=== PATIENT | female | born 2005 | race Caucasian/White ===

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

== ENCOUNTER 2023-05-22 10:33 | Outpatient (OUT) | payer OTHER, SELFPAY ==
--- NOTE | 2023-05-22 10:42 | US_ITS ---
[address] [address] Patient Name: OTILIA SCHNEIDER MRN: [id number] date: 2005 Sex: F Assigned Patient Location: US Current Patient Location: Accession/Order Number: [id number] Exam Date: 05/22/2023 10:42 Report Date: 05/22/2023 15:28 At the request of: RADHA RODRIGUEZ Procedure: US OB cervical length EXAMINATION: US OB anatomy, US OB cervical length HISTORY: ANATOMY COMPARISON: No relevant comparison available. TECHNIQUE: Transabdominal sonographic examination was performed for obstetrical and evaluation. FINDINGS: Number: 1 Heart Rate: 153.0 bpm H.B. /min Amniotic Fluid Volume: Subjectively normal Placental Location: ANTERIOR with lower margin unable to be distinguished on today's study; but no previa. Cervix Length: 4.5 cm; closed. ANATOMY: Normal Structures -cerebellum, choroid plexus, cisterna magna, lateral cerebral ventricles, orbits, midline falx, hard palate, four-chamber heart, RVOT, LVOT, stomach, kidneys, bladder, umbilical cord insertion into abdomen, three-vessel cord, cervical spine, thoracic spine, lumbar spine, sacral spine, right upper extremity, left upper extremity, right lower extremity, left lower extremity. SUBOPTIMALLY SEEN: None ABNORMALITIES: None BIOMETRY: BPD: 7.9 cm 31 weeks 4 days HC: 28.9 cm 31 weeks 6 days AC: 27.0 cm 31 weeks 1 days FL: 6.3 cm 32 weeks 3 days EFW:1808.4 grams; 60% FL/AC: 23.2 FL/BPD: 79.9 HC/AC: 1.1 GESTATIONAL AGE: Age by EDC: 31 weeks 0 days SARITA by EDC: 07/24/2023 Age by current US: 31 weeks 5 days SARITA by current US: 07/19/2023 US/US OB cervical length IMPRESSION: 1. Single live intrauterine with growth detailed above. 2. Slightly limited examination due to advanced gestational age. Electronically authenticated by: SCOT RYAN Date: 05/22/2023 15:28
--- NOTE | 2023-05-22 10:42 | US_ITS ---
[place] [id number] Patient Name: OTILIA SCHNEIDER MRN: [id number] date: 2005 Sex: F Assigned Patient Location: US Current Patient Location: US Accession/Order Number: [id number] Exam Date: 05/22/2023 10:42 Report Date: 05/22/2023 15:28 At the request of: RADHA RODRIGUEZ Procedure: US OB anatomy EXAMINATION: US OB anatomy, US OB cervical length HISTORY: ANATOMY COMPARISON: No relevant comparison available. TECHNIQUE: Transabdominal sonographic examination was performed for obstetrical and evaluation. FINDINGS: Number: 1 Heart Rate: 153.0 bpm H.B. /min Amniotic Fluid Volume: Subjectively normal Placental Location: ANTERIOR with lower margin unable to be distinguished on today's study; but no previa. Cervix Length: 4.5 cm; closed. ANATOMY: Normal Structures -cerebellum, choroid plexus, cisterna magna, lateral cerebral ventricles, orbits, midline falx, hard palate, four-chamber heart, RVOT, LVOT, stomach, kidneys, bladder, umbilical cord insertion into abdomen, three-vessel cord, cervical spine, thoracic spine, lumbar spine, sacral spine, right upper extremity, left upper extremity, right lower extremity, left lower extremity. SUBOPTIMALLY SEEN: None ABNORMALITIES: None BIOMETRY: BPD: 7.9 cm 31 weeks 4 days HC: 28.9 cm 31 weeks 6 days AC: 27.0 cm 31 weeks 1 days FL: 6.3 cm 32 weeks 3 days EFW:1808.4 grams; 60% FL/AC: 23.2 FL/BPD: 79.9 HC/AC: 1.1 GESTATIONAL AGE: Age by EDC: 31 weeks 0 days SARITA by EDC: 07/24/2023 Age by current US: 31 weeks 5 days SARITA by current US: 07/19/2023 US/US OB anatomy IMPRESSION: 1. Single live intrauterine with growth detailed above. 2. Slightly limited examination due to advanced gestational age. Electronically authenticated by: SCOT RYAN Date: 05/22/2023 15:28
== END 2023-05-22 10:34 | disposition home or self-care (01) ==
LOC: US 10:40
PROVIDERS: Visit Provider Obstetrics & Gynecology
DX: Z36.89 Encounter for other specified antenatal screening (principal)
CPT/HCPCS: 76805; 76817

== ENCOUNTER 2023-06-20 19:22 | Outpatient (REF) | payer OTHER, SELFPAY | END 2023-06-20 19:23 | disposition home or self-care (01) | LOC: LAB 19:22 | PROVIDERS: Visit Provider Physician Assistant | DX: Z34.93 Encounter for supervision of normal pregnancy, unspecified, third trimester (principal) | CPT/HCPCS: 87081 ==

== ENCOUNTER 2023-06-23 02:28 | Observation (INO) | payer OTHER, SELFPAY ==
[2023-06-23 02:41] VITALS: BP 134/80; PULSE 104
[2023-06-23 02:59] LABS: Bilirubin Urine NEGATIVE (NEGATIVE); Blood Urine NEGATIVE (NEGATIVE); Clarity Urine CLEAR (CLEAR); Color Urine LT. YELLOW (YELLOW); Glucose Urine UA NEGATIVE (NEGATIVE); Ketones Urine NEGATIVE (NEGATIVE); Leukocyte Esterase Urine NEGATIVE (NEGATIVE); Nitrite Urine NEGATIVE (NEGATIVE); Protein Urine NEGATIVE (NEG/TRACE); Specific Gravity Urine <=1.005 (1.005-1.025); Urobilinogen Urine 0.2 EU/dL (0.2-1.0)
[2023-06-23 03:01] LABS: Urine Microscopic Indicated NO
[2023-06-23 03:07] LABS: Amnisure NEGATIVE (NEGATIVE)
== END 2023-06-23 03:28 | disposition home or self-care (01) ==
PROVIDERS: Admitting Provider Obstetrics & Gynecology; Visit Provider Obstetrics & Gynecology
DX: Z03.71 Encounter for suspected problem with amniotic cavity and membrane ruled out (principal); Z3A.00 Weeks of gestation of pregnancy not specified
CPT/HCPCS: 59025; 81003; 84112; G0378; G0379

== ENCOUNTER 2023-07-19 04:53 | Inpatient (IN) | payer OTHER, SELFPAY ==
[2023-07-19] VITALS (80 sets, daily range): BP systolic 107–165; BP diastolic 51–93; PULSE 89–141; RESP 14–18; TEMP 36.6–37.3; O2SAT 96
--- OUTSIDE RECORDS SUMMARY | 2023-07-19 04:57 | XMS_ITS | CCD ---
Author Name Unknown Address [address] [place] [address] Organization [facility] Care Team Providers Care Insurance Counselor Name Role Phone Ketan Mojica Unavailable Unavailable Unavailable Ketan Mojica Unavailable MD VAUGHN CORTEZ Attending Unavailable MD PIA, PHD GARTH Attending Unavaila ble JENNIFER ., DR GARCIA Consulting Unavailable JENNIFER ., DR GARCIA Attending Unavailable [facility] Primary Care Unavailable JENNIFER ., DR GARCIA Admitting Unavailable AGUBOSIM, DADA Consulting Unavailable JENNIFER ., DR GARCIA Procedure Practitioner Unavail able REQUEST, NONE LISTED Primary Care Unavaila ble JENNIFER ., DR GARCIA Attending Unavailable JENNIFER ., DR GARCIA Admitting Unavailable JENNIFER ., DR GARCIA Consulting Unavailable JENNIFER ., DR GARCIA Attending Unavailable [facility] Primary Care Unavailable JENNIFER ., DR GARCIA Admitting Unavailable ANTHONY ., MARY ALICE Admitting Unavailable [facility] Primary Care Unavailable ANTHONY ., MARY ALICE Attending Unavailable JENNIFER ., DR GARCIA Attending Unavailable [facility] Primary Care Unavailable JENNIFER ., DR GARCIA Admitting Unavailable JENNIFER ., DR GARCIA Consulting Unavailable JENNIFER ., DR GARCIA Attending Unavailable JENNIFER ., DR GARCIA Admitting Unavailable REQUEST, NONE LISTED Primary Care Unavaila ble JENNIFER ., DR GARCIA Consulting Unavailable JENNIFER ., DR GARCIA Attending Unavailable REQUEST, DR NONE LISTED Primary Care Unavaila ble EJNNIFER ., DR GARCIA Admitting Unavailable ZIEBER, DR SCOT Decker Consulting Unavailable JENNIFER ., DR GARCIA Consulting Unavailable JENNIFER ., DR GARCIA Attending Unavailable REQUEST, DR NONE LISTED Primary Care Unavaila ble JENNIFER ., DR GARCIA Admitting Unavailable JENNIFER ., DR GARCIA Attending Unavailable REQUEST, DR NONE LISTED Primary Care Unavaila ble JENNIFER ., DR GARCIA Admitting Unavailable JENNIFER ., DR GARCIA Consulting Unavailable JENNIFER ., DR GARCIA Attending Unavailable REQUEST, DR NONE LISTED Primary Care Unavaila ble WEST, DR KAISER Childs Consulting Unavailable JENNIFER ., DR GARCIA Admitting Unavailable JENNIFER ., DR GARCIA Consulting Unavailable KETAN MOJICA Primary Care Physician Alvaro Holt Attending Unavailable LANI, Christel T Attending Unavailable VINNY, TREVIN Suggs Attending Unavailable LANI, Christel T Consulting Unavailable LANI, Christel T Attending Unavailable LANI, Christel T Referring Unavailable LANI, TREVIN Christel T Consulting Unavailable LONGSDORFBLAZE Consulting Unavailable LANI, Christel T Consulting Unavailable LANI, Christel T Consulting Unavailable LANI, Christel T Consulting Unavailable LANI, Christel T Consulting Unavailable LANI, Christel T Consulting Unavailable LANI, Christel T Consulting Unavailable LANI, Christel T Consulting Unavailable LANI, Christel T Consulting Unavailable LANI, Christel T Consulting Unavailable LANI, Christel T Consulting Unavailable LANI, Christel T Consulting Unavailable LANI, Christel T Consulting Unavailable LANI, Christel T Consulting Unavailable Seth Cruz Attending Unavailable Ketan Mojica Unavailable MARY ALICE CRUZ Attending Unavailable ANTHONY, MARY ALICE Attending Unavailable ANTHONY, MARY ALICE Attending Unavailable RADHA GILL Attending Unavailable Medications Current Medications Medication Drug Class(es) Dates Sig (Normalized) Sig (Original) citalopram 20 mg oral tablet (4 sources) Serotonin Reuptake Inhibitor Start: 11-26-2022 citalopram 20 mg Tab Refills(s) 0 Start Date: 11/26/22 Status: Ordered diphenhydrAMINE hydrochloride 25 mg oral capsule (3 sources) Histamine-1 Receptor Antagonist Start: 12-10-2022 take 1 capsule by mouth three times daily as needed Benadryl 25 mg Cap 1 -2 caps, Oral, TID, PRN for itching, # 30 cap(s), Refills(s) 0, Pharmacy: [facility]/pharmacy #[id number], 163, cm, 12/10/22 11:22:00 EDT, Height/Length Dosing, 76.5, kg, 12/10/22 11:22:00 EDT, Weight Dosing Start Date: 12/10/22 Status: Ordered take 1 capsule by [facility] every twenty-four hours diphenhydrAMINE HCl 25 MG 1 capsule at bedtime as needed Orally Once a day Active famotidine 40 mg oral tablet (3 sources) Histamine-2 Receptor Antagonist Start: 12-10-2022 End: 12-17-2022 take 1 tablet by mouth once daily at bedtime Pepcid 40 mg Tab 40 mg = 1 tab(s), Oral, Once a day (at bedtime), X 7 day(s), # 7 tab(s), Refills(s) 0, Pharmacy: [facility]/pharmacy #[id number], 163, cm, 12/10/22 11:22:00 EDT, Height/Length Dosing, 76.5, kg, 12/10/22 11:22:00 EDT, Weight Dosing Start Date: 12/10/22 Stop Date: 12/17/22 Status: Ordered 12 hr loratadine 5 mg / pseudoephedrine sulfate 120 mg extended release oral tablet (1 source) alpha-Adrenergic Agonist Start: 11-26-2022 End: 12-03-2022 Claritin-D 5 mg-120 mg Tab-ER 1 tab(s), Oral, q12hr for 7 day(s), 14 tab(s), Refill(s) 0, [facility]/pharmacy #[id number], 162, cm, 11/26/22 17:18:00 EDT, Height/Length Dosing, 78, kg, 11/26/22 17:18:00 EDT, Weight Dosing Start Date: 11/26/22 Stop Date: 12/03/22 Status: Ordered Mucinex DM 30 mg-600 mg Tab-ER (1 source) Start: 11-26-2022 End: 12-10-2022 Mucinex DM 30 mg-600 mg Tab-ER 2 tab(s), Oral, q12hr for 14 day(s), 56 tab(s), Refill(s) 0, [facility]/pharmacy #[id number], 162, cm, 11/26/22 17:18:00 EDT, Height/Length Dosing, 78, kg, 11/26/22 17:18:00 EDT, Weight Dosing Start Date: 11/26/22 Stop Date: 12/10/22 Status: Ordered Completed/Discontinued Medications Medication Drug Class(es) Dates Sig (Normalized) Sig (Original) atenolol 25 mg oral tablet (4 sources) beta-Adrenergic Mikel Start: 04-18-2021 take 2 tablets by mouth at bedtime Atenolol 25 MG Oral Tablet 2 po hs. Quantity: 60 Refills: 5 Ordered: 16-Jun-2021 Vaughn Cortez MD Start : 18-Apr-2021 Active Start: 04-18-2021 Atenolol 25 MG Oral Tablet 1 po hsxweek, 2 po hs. Quantity: 30 Refills: 5 Ordered: 18-Apr-2021 Vaughn Cortez MD Start : 18-Apr-2021 Active Ketorolac Tromethamin (1 source) Start: 03-31-2021 Ketorolac Trom ethamin Mar, 2 mL magnesium oxide 400 mg oral tablet (2 sources) Start: 06-27-2021 Magnesium Oxid e 400 (241.3 Mg) MG Oral Tablet Quantity: 30 Refills: 0 Ordered: 27-Jun-2021 DO Start : 27-Jun-2021 Active promethazine hydrochloride 12.5 mg oral tablet (4 sources) Phenothiazine Start: 06-27-2021 Promethazine H Cl - 12.5 MG Oral Tablet Quantity: 30 Refills: 0 Ordered: 27-Jun-2021 DO Start : 27-Jun-2021 Active Start: 03-31-2021 take 1 tablet by pricilla th every twelve hours Promethazine HCl 25 MG 1 tablet as needed Orally every 12 hrs for 10 day(s) PRN Mar, Active SUMAtriptan 100 mg oral tablet (6 sources) Serotonin-1b and Serotonin-1d Receptor Agonist Start: 04-18-2021 take 1 tablet by mouth every two hours SUMAtriptan Succinate 100 MG Oral Tablet TAKE 1 TABLET AT ONSET OF MIGRAINE HEADACHE. MAY REPEAT IN 2 HOURS IF NEEDED. Quantity: 9 Refills: 3 Ordered: 16-Jun-2021 Vaughn Cortez MD Start : 18-Apr-2021 Active Start: 01-05-2021 take 1 tablet by pricilla th every twenty-four hours SUMAtriptan Succinate 100 MG 1 tablet as needed Orally Once a day PRN Dec, Active Problems Active Problems Problem Classification Problem Date Documented Date Episodic/Chronic Allergic reactions (2 sources) Contact dermatitis; Translations: [Unspecified contact dermatitis, unspecified cause] Onset: 12-10-2022 Episodic Anxiety disorders (2 sources) Anxiety disorder; Translations: [Anxiety state, unspecified] Chronic Attention-deficit, conduct, and disruptive behavior disorders (2 sources) Compulsive behavior; Translations: [Obsessive-compulsive disorders] Episodic Blindness and vision defects (2 sources) Unspecified visual loss; Translations: [Unspecified visual loss] Onset: 02-09-2023 Chronic Delirium, dementia, and amnestic and other cognitive disorders (3 sources) Postconcussion syndrome; Translations: [Postconcussional syndrome] Onset: 04-27-2021 Resolved: 04-27-2021 Chronic Headache; including migraine (13 sources) Tension-type headache; Translations: [Tension headache] Onset: 04-27-2021 Resolved: 04-27-2021 Chronic Headache; including migraine (2 sources) Daily headache; Translations: [Headache] Episodic Intracranial injury (6 sources) Concussion injury of brain; Translations: [Concussion, unspecified] Episodic Mood disorders (2 sources) Depressive disorder; Translations: [Depressive disorder, not elsewhere classified] Chronic Nonspecific chest pain (1 source) Chest pain; Translations: [Chest pain, unspecified] Onset: 12-11-2022 Episodic Other nutritional; endocrine; and metabolic disorders (1 source) Overweight in adulthood with body mass index of 25 or more but less than 30; Translations: [Body mass index (BMI) 29.0-29.9, adult] Onset: 11-26-2022 Episodic Other upper respiratory infections (1 source) Acute upper respiratory infection; Translations: [Acute upper respiratory infection, unspecified] Onset: 11-26-2022 Episodic Unclassified (1 source) PERSONAL HISTORY OF COVID-19; Translations: [PERSONAL HISTORY OF COVID-19] Onset: 02-06-2022 Unclassified (1 source) CONTACT W/AND (SUSP) EXPOS COVID-19; Translations: [CONTACT W/AND (SUSP) EXPOS COVID-19] Onset: 02-06-2022 Unclassified (3 sources) Sprain of right knee Onset: 11-27-2016 12-07-2016 Past or Other Problems Problem Classification Problem Date Documented Da te Episodic/Chronic Abdominal pain (1 source) Pelvic and perineal pain; Translations: [PELVIC AND PERINEAL PAIN] Onset: 01-04-2022 Episodic Immunizations and screening for infectious disease (4 sources) Encounter for screening for infections with a predominantly sexual mode of transmission; Translations: [ENC SCREEN INFECTIONS SEXL TRANSMS] Onset: 11-13-2021 Episodic OB-related trauma to perineum and vulva (1 source) Second degree perineal laceration during delivery; Translations: [SECOND DEG PERINEAL LAC DUR DELIV] Onset: 02-06-2022 Episodic Other aftercare (1 source) Other rat exterminator (current) drug therapy; Translations: [OTH CARE HOME CURRENT DRUG THERAPY] Onset: 02-06-2022 Episodic Other complications of (3 sources) Maternal care for excessive growth, third trimester, not applicable or unspecified; Translations: [MAT CARE EXCSS FTL GRTH 3RD TRI UNS] Onset: 01-29-2022 Episodic Other complications of (4 sources) Other specified related conditions, third trimester; Translations: [OTH SPEC PREG RELATED COND 3RD TRI] Onset: 01-03-2022 Episodic Other female genital disorders (1 source) Other specified noninflammatory disorders of vagina; Translations: [OTH SPEC NONINFLAMMATORY D/O VAGINA] Onset: 11-15-2021 Episodic Other gastrointestinal disorders (1 source) Diarrhea, unspecified; Translations: [DIARRHEA UNSPECIFIED] Onset: 01-04-2022 Episodic Other and delivery including normal (7 sources) ; Translations: [ state, incidental] Onset: 09-21-2021 Episodic Other screening for suspected conditions (not mental disorders or infectious disease) (10 sources) Encounter for screening for Streptococcus B; Translations: [Encounter for screening for diabetes mellitus] Onset: 09-25-2021 Episodic Residual codes; unclassified (1 source) 39 weeks gestation of ; Translations: [39 WEEKS GESTATION OF ] Onset: 02-06-2022 Episodic Residual codes; unclassified (1 source) 35 weeks gestation of ; Translations: [35 WEEKS GESTATION OF ] Onset: 01-10-2022 Episodic Results Test Name Value Interpretation Reference Range Facility Auto Diffon 12-11-2022 Basophils/100 WBC (Bld) 0.1 % Normal 0.0-2.0 [facility] Comment on above: Order Comment: Order Added by Discern Expert. Performed By: #### 1 [id number], 2391375, 6877544, 5823320, 88909547, [id number] ####[address] [place] [address] Basophils/Leukocytes Auto (Bld) [Pure # fraction] 0.0 E9/L Normal 0.0-0.2 [facility] Comment on above: Order Comment: Order Added by Discern Expert. Performed By: #### 1 [id number], 0505841, 3994172, 7475154, 53651184, 56344459 ####[address] [address] Eosinophils/100 WBC (Bld) 1.8 % Normal 0.0-8.0 [facility] Comment on above: Order Comment: Order Added by Discern Expert. Performed By: #### 1 0314443, 7324197, 9219240, 8798611, 23221894, 06704715 ####[address] [address] Eosinophils/Leukocytes Auto (Bld) [Pure # fraction] 0.2 E9/L Normal 0.0-0.5 [facility] Comment on above: Order Comment: Order Added by Discern Expert. Performed By: #### 1 2396515, 1591998, 6246903, 9029217, 93882180, 41254255 ####[address] [address] Lymphocytes/100 WBC (Bld) 15.1 % Normal 14.0-50.0 [facility] Comment on above: Order Comment: Order Added by Discern Expert. Performed By: #### 1 4283642, 5912533, 9804908, 4214135, 47627827, 94006233 ####[address] [address] Lymphocytes/Leukocytes Auto (Bld) [Pure # fraction] 1.5 E9/L Normal 1.0-4.0 [facility] Comment on above: Order Comment: Order Added by Marquez Expert. Performed By: #### 1 1190298, 8858865, 7724694, 2749064, 36557865, 30367410 ####[facility] [address] [place] [address] Monocytes/100 WBC (Bld) 9.2 % Normal 4.0-14.0 [facility] Comment on above: Order Comment: Order Added by Discern Expert. Performed By: #### 1 2739151, 4125533, 5344664, 2591020, 86471951, 08224555 ####[facility] [address] [place] [address] Monocytes/Leukocytes Auto (Bld) [Pure # fraction] 0.9 E9/L Normal 0.2-1.0 [facility] Comment on above: Order Comment: Order Added by Marquez Expert. Performed By: #### 1 5169367, 5855302, 0465184, 9780835, 31930655, 66770535 ####[facility] [address] [place] [address] Neutrophils/100 WBC (Bld) 73.8 % Normal 36.0-75.0 [facility] Comment on above: Order Comment: Order Added by Marquez Expert. Performed By: #### 1 9001336, 2124962, 9145290, 0883698, 40515438, 29937403 ####[address] [place] [address] Neutrophils/Leukocytes Auto (Bld) [Pure # fraction] 7.3 E9/L Normal 2.0-7.5 [facility] Comment on above: Order Comment: Order Added by Marquez Expert. Performed By: #### 1 3815128, 6028663, 1115093, 6176087, 89919094, 30480798 ####[facility] [address] [place] [address] BMPon 12-11-2022 Anion gap [Moles/Vol] 10 mmol/L Normal 6-16 [facility] [place] [facility] Comment on above: Performed By: #### 1 6104230, 7917227, 6479135, 1524024, 89259930, 48244669 ####[facility] [address] [place] [address] Calcium [Mass/Vol] 8.3 mg/dL Low 8.9-11.1 [facility] Comment on above: Performed By: #### 1 3541871, 0763270, 0401026, 3241155, 45327644, 18826975 ####[facility] [address] [place] [address] Chloride [Moles/Vol] 105 mmol/L Normal 101-111 [facility] Comment on above: Performed By: #### 1 1548812, 2617730, 3436276, 3508088, 88629302, 27704205 ####[facility] [address] [place] [address] CO2 [Moles/Vol] 23 mmol/L Normal 21-31 [facility] Comment on above: Performed By: #### 1 0130642, 9669521, 4600344, 6318603, 33982800, 38580480 ####[facility] [address] [place] [address] Creatinine [Mass/Vol] 0.7 mg/dL Normal 0.5-1.3 [facility] [place] [facility] Comment on above: Performed By: #### 1 3538797, 1457355, 0129060, 6843774, 65630804, 29638889 ####[facility] [address] [place] [address] Glucose [Mass/Vol] 92 mg/dL Normal 55-199 [facility] Comment on above: Result Comment: If t his glucose result represents a fasting glucose, interpretation should refer to the following reference range: 55-99 mg/dL Performed By: #### 1 3146593, 3764619, 1116205, 5049379, 62064447, 25073308 ####[facility] [address] [place] [address] Potassium [Moles/Vol] 4.4 mmol/L Normal 3.5-5.3 [facility] [place] [facility] Comment on above: Result Comment: 'Spe cimen hemolyzed. Result may be affected. Redraw is recommended.' Performed By: #### 1 6285654, 3214247, 5197647, 1405603, 25128885, 69621776 ####[facility] [address] [place] [address] Sodium [Moles/Vol] 134 mmol/L Low 135-145 [facility] Comment on above: Performed By: #### 1 9056689, 7933263, 8030167, 9684398, 86703248, 59467319 ####[facility] [address] [place] [address] Urea nitrogen [Mass/Vol] 10 mg/dL Normal 5-21 [facility] Comment on above: Performed By: #### 1 0557196, 7147071, 5894844, 7361077, 87971115, 16699140 ####[facility] [address] [place] [address] Urea nitrogen/Creatinine [Mass ratio] 14 No Units Normal 10-20 [facility] Comment on above: Performed By: #### 1 3305457, 4184001, 4689595, 5285027, 37729570, 40430788 ####[facility] [address] [place] [address] CBC w/ Auto Diffon 3 Erythrocyte distribution width (RBC) [Ratio] 17.0 % High 10.9-14.2 [facility] Comment on above: Performed By: #### 1 8264894, 3218219, 1461857, 5068805, 09635968, 89547708 ####[facility] [address] [place] [address] Hematocrit (Bld) [Volume fraction] 34.6 % Normal 34.0-46.0 [facility] Comment on above: Performed By: #### 1 2868597, 4714836, 7532980, 7209872, 38269573, 86233670 ####[facility] [address] [place] [address] Hemoglobin (Bld) [Mass/Vol] 11.2 g/dL Low 12.0-16.0 [facility] Comment on above: Performed By: #### 1 2976301, 8223892, 2176697, 5165200, 80054043, 48453268 ####[address] [place] [address] MCH (RBC) [Entitic mass] 25.1 pg Low 27.0-34.0 [facility] Comment on above: Performed By: #### 1 0450567, 5930221, 4145797, 2705009, 71116884, 76507807 ####[address] [address] MCHC (RBC) [Mass/Vol] 32.3 g/dL Normal 31.4-36.0 [facility] [place] [facility] Comment on above: Performed By: #### 1 4841432, 6379265, 7493108, 2422343, 37529370, 53624300 ####[address] [address] MCV (RBC) [Entitic vol] 77.7 fL Low 80.0-100.0 [facility] Comment on above: Performed By: #### 1 4821059, 4973172, 6621092, 6368117, 53416482, 59561815 ####[address] [address] Platelet mean volume (Bld) [Entitic vol] 8.0 fL Normal 6.4-10.8 [facility] Comment on above: Performed By: #### 1 9406074, 6908884, 7541384, 2702606, 75741253, 91385745 ####[address] [address] Platelets (Bld) [#/Vol] 318.0 E9/L Normal 150.0-500.0 [facility] Comment on above: Performed By: #### 1 2631340, 1535082, 3778734, 9882557, 08271917, 08037360 ####[facility] [address] [place] [address] RBC (Bld) [#/Vol] 4.4 E12/L Normal 4.3-5.9 [facility] Comment on above: Performed By: #### 1 8680454, 2338160, 7565032, 6523047, 87514957, 16895235 ####[facility] [address] [place] [address] WBC corrected for nucl RBC Auto (Bld) [#/Vol] 10.0 E9/L Normal 4.0-11.0 [facility] Comment on above: Performed By: #### 1 3234787, 3661870, 0607165, 2554717, 23836255, 00619828 ####[facility] [address] [place] [address] CHEMISTRYOrdered By: SYSTEM SYSTEM on 12-11-2022 Anion gap [Moles/Vol] 10 mmol/L Normal 6 - 16 mEq/L F [facility] Calcium [Mass/Vol] 8.3 mg/dL Low 8.9 - 11. 1 mg/dL [facility] Chloride [Moles/Vol] 105 mmol/L Normal 101 - 1 11 mmol/L [facility] CO2 [Moles/Vol] 23 mmol/L Normal 21 - 31 mmol/L [facility] Creatinine [Mass/Vol] 0.7 mg/dL Normal 0.5 - 1.3 mg/dL [facility] GFR/1.73 sq M.predicted among non-blacks MDRD (S/P/Bld) [Vol rate/Area] 128 mL/min/1.73 m2 Normal >=59mL/min/1 .73 m2 [facility] Chem S Glucose [Mass/Vol] 92 mg/dL Normal 55 - 199 mg/dL [facility] Potassium [Moles/Vol] 4.4 mmol/L Normal 3.5 - 5.3 mmol/L [facility] Comment on above: Result Comment: 'Spe cimen hemolyzed. Result may be affected. Redraw is recommended.' Sodium [Moles/Vol] 134 mmol/L Low 135 - 145 mmol/L [facility] Troponin I.cardiac [Mass/Vol] pg/mL Low 10.10 - 27.10 pg/mL [facility] Urea nitrogen [Mass/Vol] 10 mg/dL Normal 5 - 21 mg/dL [facility] Remisol Urea nitrogen/Creatinine [Mass ratio] 14 mg/mg Normal 10 - 20 [facility] COAGULATIONOrdered By: Allyn Ryan on 12-11-2022 aPTT Coag (PPP) [Time] 30.7 s Normal 25.1 - 36.5 second(s) [facility] Auto Coag INR Coag (PPP) [Relative time] 1.1 {INR} Invalid Interpretation Code [facility] Auto Coag PT Coag (PPP) [Time] 12.5 s Normal 9.4 - 1 2.5 second(s) [facility] Auto Coag Consent for Treatmenton 11-14 Consent for Treatment [id number] .00CD:127 Normal [facility] Discharge Instructionson Discharge Instructions [id number] .[id number]:127 Normal [facility] ED Clinical Summaryon 2022 ED Clinical Summary [id number] ED Clinical Summary Person Information Name: CAREY HODGES/[facility] Age: 17 Years : 2005 Sex: Female Language: Swiss PCP: KETAN MOJICA DO Marital Status: Single Visit Id: Visit Reason: Shortness of breath; Chest pressure - Adult; ALLERGIC REACTION Speciality: Acuity: 3 Enc Type: Emergency Med Service: Emergency Arrival: 12/11/2022 04:10:27 Discharge: 12/11/2022 06:51:09 LOS: 000 02:41 Checkin: 12/11/2022 04:10:27 Checkout: 12/11/2022 06:51:09 Dispo Type: Home (Routine DC) EVENTS: Event Name Event Status Request Date/Time Start Date/Time Complete Date/Time Arrive Complete 12/11/2022 04:10:27 12/11/2022 04:10:27 12/11/2022 04:10:27 Document Home Meds Request 12/11/2022 04:10:27 Triage Complete 12/11/2022 04:10:27 12/11/2022 04:13:50 12/11/2022 04:13:50 EKG Complete 12/11/2022 04:14:51 12/11/2022 04:18:30 Bed Assign Complete 12/11/2022 04:15:03 12/11/2022 04:15:03 12/11/2022 04:15:03 Dr Exam Complete 12/11/2022 04:15:03 12/11/2022 04:20:25 12/11/2022 04:20:25 RN Exam Request 12/11/2022 04:15:03 Pending Labs Request 12/11/2022 04:20:20 Lab Complete 12/11/2022 04:20:20 12/11/2022 04:57:05 Patient Care Request 12/11/2022 04:20:20 RT Request 12/11/2022 04:20:20 X-Ray Complete 12/11/2022 04:20:20 12/11/2022 04:40:18 12/11/2022 04:49:59 Registration Complete 12/11/2022 04:20:25 12/11/2022 04:32:25 12/11/2022 04:32:25 Reg Complete Request 12/11/2022 04:32:25 Reg Bed Request Complete 12/11/2022 04:32:25 12/11/2022 04:32:25 12/11/2022 04:32:25 Pending Labs Complete 12/11/2022 04:38:05 12/11/2022 04:38:05 12/11/2022 04:57:06 Lab Complete 12/11/2022 04:38:05 12/11/2022 04:38:05 12/11/2022 04:57:06 Pending Labs Complete 12/11/2022 04:42:52 12/11/2022 04:42:52 12/11/2022 04:42:59 Lab Complete 12/11/2022 04:42:52 12/11/2022 04:42:52 12/11/2022 04:42:59 Wet Read Request 12/11/2022 04:49:59 Pending Labs Complete 12/11/2022 06:16:04 12/11/2022 06:16:04 12/11/2022 06:16:04 Discharge Complete 12/11/2022 06:35:33 12/11/2022 06:51:15 12/11/2022 06:51:15 Transfer Complete 12/11/2022 06:51:15 12/11/2022 06:51:15 12/11/2022 06:51:15 ADDRESS: [address] [place] [address] IFRAH VANG PR [phone] PHYS DOC NOTES: MEDICAL INFORMATION: Prescriptions Given: Medications to Continue with No Changes Other Medications citalopram (citalopram 20 mg Tab) diphenhydrAMINE (Benadryl 25 mg Cap) 1 -2 caps By Mouth 3 times a day as needed for itching. Refills: 0. famotidine (Pepcid 40 mg Tab) 1 Tablets By Mouth once a day (at bedtime) for 7 Days. Refills: 0. PATIENT EDUCATION INFORMATION: Instructions: Contact Dermatitis; Nonspecific Chest Pain, Adult Follow up: With: Address: When: KETAN MOJICA [address] [place], [place] [id number] Business (1) In 3 days DIAGNOSIS: Acute contact dermatitis; Chest pain Normal [facility] ED Note-Nursingon 12-11-2022 ED Note-Nursing pt arrived to ed fro m home via private car with her and child c/o rash and swelling to her face and rash to her BL arms, BL thighs, and chest. pt has redness with swelling on her face and just redness on the other parts of the body that was affected. pt endorses itching. pt was seen in this ED yesterday for the same issue but was unable to get her prescriptions since the pharmacy was closed. pt is 8 weeks and is . VSS. pt slightly SOB but denies any other complaints. pt lung sounds clear throughout. Normal [facility] ED Note-Nursing pt given d/c instructions and educated on importance of follow up. pt verbalized understanding of instructions and readiness for d/c. pt walked self ambulatory to waiting room in stable condition Normal [facility] ED Note-Physicianon 12-12-19 ED Note-Physician Basic Information Time Seen: Alvaro Holt DO 12/11/2022 04:20 Chief Complaint Allergic reaction to poison oak. Seen earlier in ER for same complain. Now having chest pressure and SOB for past couple of hours. Pt is 8 weeks and . History of Present Illness HPI: Patient is a 17-year-old female who is 8 weeks presents the ED for chest pressure and shortness of breath. Patient states that earlier today she was in the ED and was diagnosed with a allergic reaction to poison oak. She states that she has continued to have itching and rash for which she has been using calamine lotion and a oatmeal scrub. She states that 2 hours ago she started feeling like there was a slight tightness in her chest as well has some shortness of breath. She denies any difficulty swallowing or any tongue swelling or tightness in her throat. She denies any nausea vomiting or diarrhea. ROS: Pertinent review of systems conducted and is negative except as noted above. Physical exam: General: nontoxic appearing and in no distress HEENT: Mucous membranes moist. Slight erythema and puffiness of bilateral cheeks and lower eyelids Neuro: awake and alert Neck: supple, trachea midline Card: Heart regular rate and rhythm no murmur Resp: Lungs clear to auscultation no wheeze or rhonchi Abd: Soft and nondistended. No tenderness to palpation with no rebound or guarding. Ext: No gross deformity or edema Physical Exam Vitals & Measurements T: 36.8 ?C(Oral) HR: 96(Peripheral) RR: 16 BP: 125/77 SpO2: 98% HT: 162 cm WT: 76 kg BMI: 28.96 Medical Decision Making MEDICAL DECISION MAKING Number and Complexity of Problems Differential Diagnosis: [] [facility] Data External documents reviewed: N/A My EKG interpretation: Noted in chart if applicable My CT interpretation: N/A My X-ray interpretation: Noted in chart if applicable My Ultrasound interpretation: N/A Decision rules/scores evaluated: N/A Discussed with: N/A Treatment and Disposition ED Course: Patient is well-appearing in no distress. Lungs are clear to auscultation. She is saturating well on room air. She has no swelling in her mouth throat or difficulty breathing or swallowing. We will obtain a cardiac work-up here in the ED. Work-up shows a mild anemia of 11.2. Chest x-ray shows no acute process. Troponin is within normal limits. The pain has been going on for several hours so I do not believe there is utility in repeating a 3-hour troponin at this time. I discussed the results with the patient at bedside. I feel she is stable for discharge with close follow-up with her primary care physician. She will call her SAWSMITH first thing in the morning to ask what further medication she can use for the contact dermatitis and itching as she is both currently and breast-feeding. Shared decision making: As above Code status: N/A Assessment/Plan Acute contact dermatitis (L25.9: Unspecified contact dermatitis, unspecified cause) Chest pain (R07.9: Chest pain, unspecified) Orders: Automated Diff Basic Metabolic Panel CBC w/ Auto Diff ECG 12 Lead Adult ED Cardiac Monitoring eGFR Extra SST Tube Oxygen Saturation Oxygen Therapy PT & PTT Saline Lock Insert Troponin 0 Hr. Troponin 3 Hr. Troponin 6 Hr. Troponin 9 Hr. XR Chest Single View Disposition Plan Discharge Prescription List Prescriptions Benadryl 25 mg Cap, 1 -2 caps, Oral, TID, PRN Pepcid 40 mg Tab, 40 mg= 1 tab(s), Oral, Once a day (at bedtime) Follow-up With When Contact Information KETAN MOJICA In 3 days [address] [place] [address] [facility] (1) Additional Instructions: Patient Education Contact Dermatitis Nonspecific Chest Pain, Adult Problem List/Past Medical History Ongoing Sprain of right knee Historical No qualifying data Procedure/Surgical History RIGHT KNEE ARTHROSCOPY ACL RECONSTRUCTION HAMSTRING AUTOGRAFT MENISCAL REPAIR PARTIAL MEDIAL MENISCECTOMY (07/25/2018), None. Medications Inpatient No active inpatient medications Home Benadryl 25 mg Cap, 1 -2 caps, Oral, TID, PRN citalopram 20 mg Tab Pepcid 40 mg Tab, 40 mg= 1 tab(s), Oral, Once a day (at bedtime) Allergies No Known Allergies Social History Alcohol - Denies Alcohol Use, 08/04/2013 Current, 08/12/2020 Alcohol use interferes with work or home: No., 06/18/2017 Other Substance Abuse - Denies Substance Abuse, 08/04/2013 Household substance abuse concerns: No., 08/12/2020 Tobacco - Denies Tobacco Use, 08/04/2013 Never (less than 100 in lifetime) Tobacco Use:. Never Smokeless Tobacco Use:. Household tobacco concerns: No., 11/26/2022 Household tobacco concerns: Yes., 09/28/2010 Family History Family history is negative Lab Results WBC: 10 E9/L (12/11/22 04:33:00) RBC: 4.4 E12/L (12/11/22 04:33:00) HGB: 11.2 gm/dL Low (12/11/22 04:33:00) Hct: 34.6 % (12/11/22 04:33:00) MCV: 77.7 fL Low (12/11/22 04:33:00) MCH: 25.1 pg Low (05/ (more content not included)... Normal [facility] Comment on above: Result Comment: Elec tronically Signed By: Alvaro Holt DO\.br\Date and Time Signed: 12/11/22 06:37 EDT ED Patient Education Noteon 12-11-2022 ED Patient Education Note Dermatology Contact Dermatitis Dermatitis is redness, soreness, and swelling (inflammation) of the skin. Contact dermatitis is a reaction to certain substances that touch the skin. Many different substances can cause contact dermatitis. There are two types of contact dermatitis: ? Irritant contact dermatitis. This type is caused by something that irritates your skin, such as having dry hands from washing them too often with soap. This type does not require previous exposure to the substance for a reaction to occur. This is the most common type. ? Allergic contact dermatitis. This type is caused by a substance that you are allergic to, such as poison bre. This type occurs when you have been exposed to the substance (allergen) and develop a sensitivity to it. Dermatitis may develop soon after your first exposure to the allergen, or it may not develop until the next time you are exposed and every time thereafter. What are the causes? Irritant contact dermatitis is most commonly caused by exposure to: ? Makeup. ? Soaps. ? Detergents. ? Bleaches. ? Acids. ? Metal salts, such as nickel. Allergic contact dermatitis is most commonly caused by exposure to: ? Poisonous plants. ? Chemicals. ? Jewelry. ? Latex. ? Medicines. ? Preservatives in products, such as clothing. What increases the risk? You are more likely to develop this condition if you have: ? A job that exposes you to irritants or allergens. ? Certain medical conditions, such as asthma or eczema. What are the signs or symptoms? Symptoms of this condition may occur on your body anywhere the irritant has touched you or is touched by you. ? Symptoms include: ? Dryness or flaking. ? Redness. ? Cracks. ? Itching. ? Pain or a burning feeling. ? Blisters. ? Drainage of small amounts of blood or clear fluid from skin cracks. With allergic contact dermatitis, there may also be swelling in areas such as the eyelids, mouth, or genitals. How is this diagnosed? This condition is diagnosed with a medical history and physical exam. ? A patch skin test may be performed to help determine the cause. ? If the condition is related to your job, you may need to see an occupational health manager. How is this treated? This condition is treated by checking for the cause of the reaction and protecting your skin from further contact. Treatment may also include: ? Steroid creams or ointments. Oral steroid medicines may be needed in more severe cases. ? Antibiotic medicines or antibacterial ointments, if a skin infection is present. ? Antihistamine lotion or an antihistamine taken by mouth to ease itching. ? A bandage (dressing). Follow these instructions at home: Skin care ? Moisturize your skin as needed. ? Apply cool compresses to the affected areas. ? Try applying baking soda paste to your skin. Stir water into baking soda until it reaches a paste-like consistency. ? Do not scratch your skin, and avoid friction to the affected area. ? Avoid the use of soaps, perfumes, and dyes. Medicines ? Take or apply xjpp-hdk-qxkkutj and prescription medicines only as told by your health care provider. ? If you were prescribed an antibiotic medicine, take or apply the antibiotic as told by your health care provider. Do not stop using the antibiotic even if your condition improves. Bathing ? Try taking a bath with: ? Epsom salts. Follow the instructions on the packaging. You can get these at your local pharmacy or grocery store. ? Baking soda. Pour a small amount into the bath as directed by your health care provider. ? Colloidal oatmeal. Follow the instructions on the packaging. You can get this at your local pharmacy or grocery store. ? Bathe less frequently, such as every other day. ? Bathe in lukewarm water. Avoid using hot water. Bandage care ? If you were given a bandage (dressing), change it as told by your health care provider. ? Wash your hands with soap and water before and after you change your dressing. If soap and water are not available, use hand automatic typewriter inspector. General instructions ? Avoid the substance that caused your reaction. If you do not know what caused it, keep a journal to try to track what caused it. Write down: ? What you eat. ? What cosmetic products you use. ? What you drink. ? What you wear in the affected area. This includes jewelry. ? Check the affected areas every day for signs of infection. Check for: ? More redness, swelling, or pain. ? More fluid or blood. ? Warmth. ? Pus or a bad smell. ? Keep all follow-up visits as told by your health care provider. This is important. Contact a health care provider if: ? Your condition does not improve with treatment. ? Your condition gets worse. ? You have signs of infection such as swelling, tenderness, redness, soreness, or warmth in the affected area. ? You have a fever. ? You have new symptoms. Get help right away if: (more content not included)... Normal [facility] ED Patient Summaryon 023 ED Patient Summary [place] [id number] Patient Discharge Instructions Person Information Name: CAREY HODGES Age: 17 Years Arrival Date: 12/11/2022 04:10:27 Discharge Diagnosis: Acute contact dermatitis; Chest pain Primary Care Physician: KETAN MOJICA DO Provider Information Primary Provider: Alvaro Holt DO Advanced Wax Pot Tender:None The exam and treatment you received in the Emergency Department were for an urgent problem and are not intended as complete care. It is important that you follow up with a doctor, nurse practitioner, or physician?s pier master assistant for ongoing care. If your symptoms become worse or you do not improve as expected and you are unable to reach your usual health care provider, you should return to the Emergency Department. We are available 24 hours a day. CAREY HODGES has been given the following list of patient education materials, prescriptions and follow-up instructions: Follow-up Instructions: With: Address: When: KETAN MOJICA [facility] [place] [id number] Business (1) In 3 days In the event that this physician does not participate in your insurance network, please consult with your insurance company to find a nearby participating provider. Patient Education Materials: Contact Dermatitis; Nonspecific Chest Pain, Adult A MESSAGE TO ALL PATIENTS REGARDING OPIOIDS PRESCRIPTION OPIOIDS: WHAT YOU NEED TO KNOW Prescription opioids can be used to help relieve upygwxod-px-lxmoai pain and are often prescribed following a surgery or injury, or for certain health conditions. These medications can be an important part of the treatment but also come with serious risks. It is important to work with your healthcare provider to make sure you are getting the safest, most effective care. WHAT ARE THE RISKS AND SIDE EFFECTS OF OPIOID USE? Prescription opioids carry serious risks of addiction and overdose, especially with prolonged use. An opioid overdose, often marked by slowed breathing, can cause sudden . The use of prescription opioids can have a number of side effects as well, even when taken as directed: ? Tolerance?meaning you might need to take more of the medication for the same pain relief ? Physical dependence?meaning you have symptoms of withdrawal when a medication is stopped ? Increased sensitivity to pain ? Constipation ? Nausea, vomiting, and dry mouth ? Sleepiness and dizziness ? Confusion ? Depression ? Low levels of testosterone that can result in lower sex drive, energy, and strength ? Itching and sweating RISKS ARE GREATER WITH: ? History of drug misuse, substance use disorder, or overdose ? Mental health conditions (such as depression or anxiety) ? Sleep apnea ? Older age (65 years and older) ? Avoid alcohol while taking prescription opioids. Also, unless specifically advised by your health care provider, medications to avoid include: ? Benzodiazepines (such as Xanax or Valium) ? Muscle relaxants (such as Soma or Flexeril) ? Hypnotics (such as Ambien or Lunesta) ? Other prescription opioids KNOW YOUR OPTIONS Talk to your health care provider about ways to manage your pain that don?t involve prescription opioids. Some of these options may actually work better and have fewer risks and side effects. Options may include: ? Pain relievers such as acetaminophen, ibuprofen, and naproxen ? Some medication that are also used for depression or seizures ? Physical therapy and exercise ? Cognitive behavioral therapy, a psychological, goal-directed approach, in which patients learn how to modify physical, behavioral, and emotional triggers of pain and stress. IF YOU ARE PRESCRIBED OPIOIDS FOR PAIN: ? Never take opioids in greater amounts or more often than prescribed. ? Follow up with your primary health care provider. o Work together to create a plan on how to manage your pain. o Talk about ways to help manage your pain that don?t involve prescription opioids. o Talk about any and all concerns and side effects. ? Help prevent misuse and abuse o Never sell or share prescription opioids. o Never use another person?s prescription opioids. ? Store prescription opioids in a secure place and out of reach of others (this may include visitors, children, friends, and family). ? Safely dispose of unused prescription opioids: Find your community drug take-back program or your pharmacy mail-back program, or flush them down the toilet, following guidance from the Food and Drug Administration (www.fda.gov/Drugs/Re sourcesForYou). ? Visit www.cdc.gov/drugoverd ose to learn about the risks of opioids abuse and overdose. ? If you believe you may be struggling with addiction, tell your health day care supervisor and ask for guidance or call [facility] National Helpline at 5-256- (more content not included)... Normal [facility] HEMATOLOGYOrdered By: SYSTEM SYSTEM on 12-11-2022 Basophils/100 WBC (Bld) 0.1 % Normal 0.0 - 2.0 % [facility] HemeAutoSS Basophils/Leukocytes Auto (Bld) [Pure # fraction] 0.0 E9/L Normal 0.0 - 0.2 E9/L [facility] HemeAutoSS Eosinophils/100 WBC (Bld) 1.8 % Normal 0.0 - 8.0 % [facility] HemeAutoSS Eosinophils/Leukocytes Auto (Bld) [Pure # fraction] 0.2 E9/L Normal 0.0 - 0.5 E9/L [facility] HemeAutoSS Lymphocytes/100 WBC (Bld) 15.1 % Normal 14.0 - 50.0 % [facility] HemeAutoSS Lymphocytes/Leukocytes Auto (Bld) [Pure # fraction] 1.5 E9/L Normal 1.0 - 4.0 E9/L [facility] HemeAutoSS Monocytes/100 WBC (Bld) 9.2 % Normal 4.0 - 14.0 % [facility] HemeAutoSS Monocytes/Leukocytes Auto (Bld) [Pure # fraction] 0.9 E9/L Normal 0.2 - 1.0 E9/L [facility] HemeAutoSS Neutrophils/100 WBC (Bld) 73.8 % Normal 36.0 - 75.0 % [facility] HemeAutoSS Neutrophils/Leukocytes Auto (Bld) [Pure # fraction] 7.3 E9/L Normal 2.0 - 7.5 E9/L [facility] HemeAutoSS HEMATOLOGYOrdered By: Pilar Ryan on 12-11-2022 Erythrocyte distribution width (RBC) [Ratio] 17.0 % High 10.9 - 14.2 % [facility] HemeAutoSS Hematocrit (Bld) [Volume fraction] 34.6 % Normal 34.0 - 46.0 % [facility] HemeAutoSS Hemoglobin (Bld) [Mass/Vol] 11.2 g/dL Low 12.0 - 16.0 gm/dL [facility] HemeAutoSS MCH (RBC) [Entitic mass] 25.1 pg Low 27.0 - 34.0 pg [facility] HemeAutoSS MCHC (RBC) [Mass/Vol] 32.3 g/dL Normal 31.4 - 36.0 gm/dL [facility] HemeAutoSS MCV (RBC) [Entitic vol] 77.7 fL Low 80.0 - 100.0 fL [facility] HemeAutoSS Platelet mean volume (Bld) [Entitic vol] 8.0 fL Normal 6.4 - 10.8 fL [facility] HemeAutoSS Platelets (Bld) [#/Vol] 318.0 E9/L Normal 150.0 - 500.0 E9/L [facility] HemeAutoSS RBC (Bld) [#/Vol] 4.4 E12/L Normal 4.3 - 5.9 E12/L [facility] WBC corrected for nucl RBC Auto (Bld) [#/Vol] 10.0 E9/L Normal 4.0 - 11.0 E9/L [facility] HemeAutoSS PT & PTTon 12-11-2022 aPTT Coag (PPP) [Time] 30.7 second(s) Normal 25.1-36.5 [facility] Comment on above: Result Comment: Para meter 15 days - 4 weeks 1 - 5 months 6 - 11 months 1 - 5 years 6 - 10 years 11 - 17 years PTT Mean: 35.4 (27.6-45.6) Mean: 33.5 (24.8-40.7) Mean: 32.4 (25.1-40.7) Mean: 31.6 (24.0-39.2) Mean: 31.6 (26.9-38.7) Mean: 31.0 (24.6-38.4) Pediatric Reference ranges were obtained from a study by gisell Hood al. prepared from 1437 samples obtained at 7 different centers using the same coagulation reagent and instrumentation as [facility]. Currently there are no coagulation studies available worldwide for children to 14 days, and no normal ranges. Heparin therapeutic range (represented by Anti-Factor Xa activity of 0.2 - 0.4 U/mL) corresponds to PTT of 56.6 - 109.0 sec. Performed By: #### 1 [id number], [id number], [id number] ####[facility] [address] [place] [address] INR Coag (PPP) [Relative time] 1.1 {INR} Invalid Interpretation Code [facility] Comment on above: Result Comment: INR results are specifically intended to assess patients stabilized on long-term Anticoagulation therapy suggested INR?s ?Less Intensive Anticoagulation? 2.0 ? 3.0 Conventional Range 3.0 ? 4.5 Performed By: #### 1 [id number] [id number], [id number], [id number] ####[facility] [address] [place] [address] PT Coag (PPP) [Time] 12.5 second(s) Normal 9.4-12.5 [facility] Comment on above: Result Comment: 15 d ays - 4 weeks 1 - 5 months 6 -11 months 1 ? 5 years 6 ? 10 years 11 -17 years Mean: 11.2 (9.5 ? 12.6) Mean: 11.0 (9.7 ? 12.8) Mean: 11.0 (9.8 ? 13.0) Mean: 11.3 (9.9 ? 13.4) Mean: 11.7 (10.0 ? 14.6) Mean: 11.8 (10.0 - 14.1) Pediatric Reference ranges were obtained from a study by Vidal Concepcion et al. prepared from 1437 samples obtained at 7 different centers using the same coagulation reagent and instrumentation as [facility]. Currently there are no coagulation studies available worldwide for children to 14 days, and no normal ranges. Performed By: #### 1 [id number], [id number], 8146535, [id number], [id number] ####[facility] [address] [place] [address] Troponin 0 Hr.on 12-11-2022 Troponin I.cardiac [Mass/Vol] ng/mL Low 10.10-27.10 [facility] Comment on above: Result Comment: The 95% CI (Confidence Interval) PPV (Positive Predictive Value) for myocardial infarction in females is 38 pg/mL, in males 51 pg/mL. The results should be used in conjunction with clinical conditions of myocardial infarction. (Access High Sensitivity Troponin I Instructions For Use, Brooke Shira, February 2018) Performed By: #### 1 [id number], [id number], [id number], [id number], [id number], [id number] ####[facility] [address] [place] [address] XR Chest Single Viewon 12-11 XR Chest Single View Exam Date/Time: 12/11/2022 04:49 EDT Reason for Exam: Chest pain Report IMPRESSION: NO ACUTE CARDIOPULMONARY DISEASE CLINICAL HISTORY: Chest pain COMPARISON: NONE. FINDINGS: Osseous structures are intact. Cardiopericardial silhouette normal. Pulmonary vasculature normal. Lungs clear. Ordering Provider: Alvaro Holt FINAL REPORT Dictated: 12/11/2022 9:25 am Deepak Martini MD Signed (Electronic Signature): 12/11/2022 9:25 am Signed by: Deepak Martini MD Transcribed by: SUHAIL Technologist: ROXANNE Technical Comments Radiation Dose: Ka,r in mGy = na DAP = na Normal [facility] eGFRon 12-11-2022 GFR/1.73 sq M.predicted among non-blacks MDRD (S/P/Bld) [Vol rate/Area] 128 mL/min/1.73 m2 Normal >=59 [facility] Comment on above: Order Comment: Order added by Discern Expert. Result Comment: Consumer Loan Specialist justino kidney disease could be indicated at eGFR's of less than 60 mL/min/1.73m2. Kidney failure is indicated at less than 15 mL/min/1.73m2. Performed By: #### 1 [id number], [id number], 0450009, 8858514, [id number], [id number] ####[place] [address] [place] [address] Consent for Treatmenton 11-13 Consent for Treatment [id number] .[id number]:127 Normal [facility] Discharge Instructionson Discharge Instructions [id number] .[id number]:127 Normal [facility] ED Clinical Summaryon 2022 ED Clinical Summary [place] [id number] ED Clinical Summary Person Information Name: CAREY HODGES [place] Age: 17 Years : 2005 Sex: Female Language: Swiss PCP: KETAN MOJICA DO Marital Status: Single Visit Id: Visit Reason: Skin problem; POISON OAK ALL OVER BODY Speciality: Acuity: 4 Enc Type: Emergency Med Service: Emergency Arrival: 12/10/2022 10:41:52 Discharge: 12/10/2022 13:20:56 LOS: 000 02:39 Checkin: 12/10/2022 10:41:52 Checkout: 12/10/2022 13:20:56 Dispo Type: Home (Routine DC) EVENTS: Event Name Event Status Request Date/Time Start Date/Time Complete Date/Time Arrive Complete 12/10/2022 10:41:52 12/10/2022 10:41:52 12/10/2022 10:41:52 Document Home Meds Request 12/10/2022 10:41:52 Triage Complete 12/10/2022 10:41:52 12/10/2022 11:22:04 12/10/2022 11:22:04 Bed Assign Complete 12/10/2022 11:47:17 12/10/2022 11:47:17 12/10/2022 11:47:17 Dr Exam Complete 12/10/2022 11:47:17 12/10/2022 11:52:52 12/10/2022 11:52:52 RN Exam Complete 12/10/2022 11:47:17 12/10/2022 13:22:50 12/10/2022 13:22:50 Registration Complete 12/10/2022 11:52:52 12/10/2022 12:15:29 12/10/2022 12:15:29 Dr Exam Complete 12/10/2022 12:09:28 12/10/2022 12:09:28 12/10/2022 12:09:28 Reg Complete Request 12/10/2022 12:15:29 Reg Bed Request Complete 12/10/2022 12:15:30 12/10/2022 12:15:30 12/10/2022 12:15:30 Discharge Complete 12/10/2022 12:59:23 12/10/2022 13:24:06 12/10/2022 13:24:06 Transfer Complete 12/10/2022 13:24:06 12/10/2022 13:24:06 12/10/2022 13:24:06 ADDRESS: [address] [place] [id number] [facility] DOC NOTES: MEDICAL INFORMATION: Prescriptions Given: New Medications [id number], [address], [place] [id number], [phone] diphenhydrAMINE (Benadryl 25 mg Cap) 1 -2 caps By Mouth 3 times a day as needed for itching. Refills: 0. famotidine (Pepcid 40 mg Tab) 1 Tablets By Mouth once a day (at bedtime) for 7 Days. Refills: 0. Medications to Continue with No Changes Other Medications citalopram (citalopram 20 mg Tab) dextromethorphan-guai fenesin (Mucinex DM 30 mg-600 mg Tab-ER) 2 Tablets By Mouth every 12 hours for 14 Days. Refills: 0. PATIENT EDUCATION INFORMATION: Instructions: Contact Dermatitis Follow up: With: Address: When: Jeremy Sheridan [address] [place] [address] Business (1) In 3 days 12/13/2022 With: Address: When: KETAN MOJICA [address] [place] [address] Business (1) In 3 days 12/13/2022 DIAGNOSIS: Contact dermatitis Normal [facility] ED Note-Physicianon 12-11-19 ED Note-Physician Basic Information Time Seen: Zach Andres PA-C 12/10/2022 11:52 Chief Complaint pt. states poison oak all over body since last night. redness noted. pt. is . History of Present Illness 17-year-old female comes into the ED for evaluation of rash. The patient developed a pruritic rash yesterday at the being outdoors, she believes is poison oak. No fever, chills, nausea or vomiting. No chest pain or shortness of breath. She is currently 8 weeks . No prior treatments. Review of Systems A 10 point review of systems is negative except as noted above. Medical and Surgical History: Reviewed and noted Social history: Lives at home Tobacco: Denies Physical Exam Vitals & Measurements T: 36.5 ?C(Oral) HR: 82(Peripheral) RR: 18 BP: 121/65 SpO2: 97% HT: 163 cm WT: 76.5 kg BMI: 28.79 Nurses notes and vital signs reviewed and patient is not hypoxic. General: The patient appears well, resting comfortably. Skin: Warm, dry. Splotchy erythematous rash to the extremities chest and face. Nontender. No mucous membrane involvement. No angioedema. No drainage. Rash blanches with pressure. Head: Atraumatic. Neck: No JVD. Eye: Normal conjunctiva. Ears, Nose, Mouth, and Throat: Moist mucous membranes. Cardiovascular: Strong distal pulses. Chest wall: Respiratory: Respirations are nonlabored. Back: Normal range of motion. Musculoskeletal: Normal ROM with no gross deformity. Gastrointestinal: Urological: Neurological: Awake and alert. No focal deficits. Follows commands. Psychiatric: Cooperative. Medical Decision Making Exam is consistent contact dermatitis, likely rhus dermatitis. She is currently 8 weeks , therefore steroids were avoided. She is treated with Benadryl and Pepcid. There is no airway compromise. No fevers or vomiting. She is overall well-appearing. She is discharged home PCP follow-up. Patient was encouraged to return to the ED if symptoms worsen or change. Assessment/Plan Contact dermatitis (L25.9: Unspecified contact dermatitis, unspecified cause) Orders: diphenhydrAMINE, 1 -2 caps, Oral, TID, PRN for itching, # 30 cap(s), Refills(s) 0, Pharmacy: [facility]/pharmacy #[id number], 163, cm, 12/10/22 11:22:00 EDT, Height/Length Dosing, 76.5, kg, 12/10/22 11:22:00 EDT, Weight Dosing famotidine, 40 mg = 1 tab(s), Oral, Once a day (at bedtime), X 7 day(s), # 7 tab(s), Refills(s) 0, Pharmacy: [facility]/pharmacy #[id number], 163, cm, 12/10/22 11:22:00 EDT, Height/Length Dosing, 76.5, kg, 12/10/22 11:22:00 EDT, Weight Dosing Disposition Plan Patient Discharge Condition Disposition: Discharged home Condition: Improved and stable Counseled: Patient and/or family were counseled to workup, results, treatment plan and follow-up recommendations Discharge Prescription List Prescriptions Benadryl 25 mg Cap, 1 -2 caps, Oral, TID, PRN Pepcid 40 mg Tab, 40 mg= 1 tab(s), Oral, Once a day (at bedtime) Follow-up With When Contact Information Jeremy Sheridan In 3 days 12/13/2022 EDT [address] [place] [address]- Business (1) Additional Instructions: KETAN MOJICA In 3 days 12/13/2022 EDT [address] [place] [address]- Business (1) Additional Instructions: Patient Education Contact Dermatitis Attestation Patient seen and evaluated by the physician pier master assistant. Attending physician was present in the emergency department and supervised care. This visit was performed by both the physician and an APC. I performed all aspects of the MDM as documented. This report was transcribed using voice recognition software. Every effort was made to ensure accuracy, however, inadvertently computerized ice cream dispenser mistakes may be present. Appropriate healthcare PPE was used in evaluating this patient. The patient was placed in a mask. The healthcare provider was wearing mask, gloves, and utilizing proper hand hygiene. All equipment was properly cleansed. Problem List/Past Medical History Ongoing Sprain of right knee Historical No qualifying data Procedure/Surgical History RIGHT KNEE ARTHROSCOPY ACL RECONSTRUCTION HAMSTRING AUTOGRAFT MENISCAL REPAIR PARTIAL MEDIAL MENISCECTOMY (07/25/2018), None. Medications Inpatient No active inpatient medications Home Benadryl 25 mg Cap, 1 -2 caps, Oral, TID, PRN citalopram 20 mg Tab Mucinex DM 30 mg-600 mg Tab-ER, 2 tab(s), Oral, q12hr Pepcid 40 mg Tab, 40 mg= 1 tab(s), Oral, Once a day (at bedtime) Allergies No Known Allergies Social History Alcohol - Denies Alcohol Use, 08/04/2013 Current, 08/12/2020 Alcohol use interferes with work or home: No., 06/18/2017 Other Substance Abuse - Denies Substance Abuse, 08/04/2013 Household substance abuse concerns: No., 08/12/2020 Tobacco - Denies Tobacco Use, 08/04/2013 Never (less than 100 in lifetime) Tobacco Use:. Never Smokeless Tobacco Use:. Household tobacco concerns: No., 11/26/2022 Household tobacco concerns: Yes., 09/28/2010 Family History Family history is negati (more content not included)... Normal [facility] Comment on above: Result Comment: Elec tronically Signed By: Zach Andres PA-C\.br\Date and Time Signed: 12/10/22 13:09 EDT\.br\Electronically Co-Signed By: Seth Cruz M.D.\.br\Date and Time Co-Signed: 12/10/22 14:40 EDT ED Patient Education Noteon 12-10-2022 ED Patient Education Note Dermatology Contact Dermatitis Dermatitis is redness, soreness, and swelling (inflammation) of the skin. Contact dermatitis is a reaction to certain substances that touch the skin. Many different substances can cause contact dermatitis. There are two types of contact dermatitis: ? Irritant contact dermatitis. This type is caused by something that irritates your skin, such as having dry hands from washing them too often with soap. This type does not require previous exposure to the substance for a reaction to occur. This is the most common type. ? Allergic contact dermatitis. This type is caused by a substance that you are allergic to, such as poison bre. This type occurs when you have been exposed to the substance (allergen) and develop a sensitivity to it. Dermatitis may develop soon after your first exposure to the allergen, or it may not develop until the next time you are exposed and every time thereafter. What are the causes? Irritant contact dermatitis is most commonly caused by exposure to: ? Makeup. ? Soaps. ? Detergents. ? Bleaches. ? Acids. ? Metal salts, such as nickel. Allergic contact dermatitis is most commonly caused by exposure to: ? Poisonous plants. ? Chemicals. ? Jewelry. ? Latex. ? Medicines. ? Preservatives in products, such as clothing. What increases the risk? You are more likely to develop this condition if you have: ? A job that exposes you to irritants or allergens. ? Certain medical conditions, such as asthma or eczema. What are the signs or symptoms? Symptoms of this condition may occur on your body anywhere the irritant has touched you or is touched by you. ? Symptoms include: ? Dryness or flaking. ? Redness. ? Cracks. ? Itching. ? Pain or a burning feeling. ? Blisters. ? Drainage of small amounts of blood or clear fluid from skin cracks. With allergic contact dermatitis, there may also be swelling in areas such as the eyelids, mouth, or genitals. How is this diagnosed? This condition is diagnosed with a medical history and physical exam. ? A patch skin test may be performed to help determine the cause. ? If the condition is related to your job, you may need to see an occupational health manager. How is this treated? This condition is treated by checking for the cause of the reaction and protecting your skin from further contact. Treatment may also include: ? Steroid creams or ointments. Oral steroid medicines may be needed in more severe cases. ? Antibiotic medicines or antibacterial ointments, if a skin infection is present. ? Antihistamine lotion or an antihistamine taken by mouth to ease itching. ? A bandage (dressing). Follow these instructions at home: Skin care ? Moisturize your skin as needed. ? Apply cool compresses to the affected areas. ? Try applying baking soda paste to your skin. Stir water into baking soda until it reaches a paste-like consistency. ? Do not scratch your skin, and avoid friction to the affected area. ? Avoid the use of soaps, perfumes, and dyes. Medicines ? Take or apply dwih-xml-uhgvlec and prescription medicines only as told by your health care provider. ? If you were prescribed an antibiotic medicine, take or apply the antibiotic as told by your health care provider. Do not stop using the antibiotic even if your condition improves. Bathing ? Try taking a bath with: ? Epsom salts. Follow the instructions on the packaging. You can get these at your local pharmacy or grocery store. ? Baking soda. Pour a small amount into the bath as directed by your health care provider. ? Colloidal oatmeal. Follow the instructions on the packaging. You can get this at your local pharmacy or grocery store. ? Bathe less frequently, such as every other day. ? Bathe in lukewarm water. Avoid using hot water. Bandage care ? If you were given a bandage (dressing), change it as told by your health care provider. ? Wash your hands with soap and water before and after you change your dressing. If soap and water are not available, use hand automatic typewriter inspector. General instructions ? Avoid the substance that caused your reaction. If you do not know what caused it, keep a journal to try to track what caused it. Write down: ? What you eat. ? What cosmetic products you use. ? What you drink. ? What you wear in the affected area. This includes jewelry. ? Check the affected areas every day for signs of infection. Check for: ? More redness, swelling, or pain. ? More fluid or blood. ? Warmth. ? Pus or a bad smell. ? Keep all follow-up visits as told by your health care provider. This is important. Contact a health care provider if: ? Your condition does not improve with treatment. ? Your condition gets worse. ? You have signs of infection such as swelling, tenderness, redness, soreness, or warmth in the affected area. ? You have a fever. ? You have new symptoms. Get help right away if: (more content not included)... Normal [facility] ED Patient Summaryon 023 ED Patient Summary [address] [address] Patient Discharge Instructions Person Information Name: CAREY HODGES Age: 17 Years Arrival Date: 12/10/2022 10:41:52 Discharge Diagnosis: Contact dermatitis Primary Care Physician: KETAN MOJICA DO Provider Information Primary Provider: Seth Cruz M.D. Advanced Wax Pot Tender:Zach Andres PA-C The exam and treatment you received in the Emergency Department were for an urgent problem and are not intended as complete care. It is important that you follow up with a doctor, nurse practitioner, or physician?s pier master assistant for ongoing care. If your symptoms become worse or you do not improve as expected and you are unable to reach your usual health care provider, you should return to the Emergency Department. We are available 24 hours a day. HODGESCAREY KYLE has been given the following list of patient education materials, prescriptions and follow-up instructions: Follow-up Instructions: With: Address: When: Jeremy Sheridan [address] [place] [address] Business (1) In 3 days 12/13/2022 With: Address: When: KETAN MOJICA [address] [place] [id number] Business (1) In 3 days 12/13/2022 In the event that this physician does not participate in your insurance network, please consult with your insurance company to find a nearby participating provider. Patient Education Materials: Contact Dermatitis A MESSAGE TO ALL PATIENTS REGARDING OPIOIDS PRESCRIPTION OPIOIDS: WHAT YOU NEED TO KNOW Prescription opioids can be used to help relieve pupfppfx-ia-shlyrq pain and are often prescribed following a surgery or injury, or for certain health conditions. These medications can be an important part of the treatment but also come with serious risks. It is important to work with your healthcare provider to make sure you are getting the safest, most effective care. WHAT ARE THE RISKS AND SIDE EFFECTS OF OPIOID USE? Prescription opioids carry serious risks of addiction and overdose, especially with prolonged use. An opioid overdose, often marked by slowed breathing, can cause sudden . The use of prescription opioids can have a number of side effects as well, even when taken as directed: ? Tolerance?meaning you might need to take more of the medication for the same pain relief ? Physical dependence?meaning you have symptoms of withdrawal when a medication is stopped ? Increased sensitivity to pain ? Constipation ? Nausea, vomiting, and dry mouth ? Sleepiness and dizziness ? Confusion ? Depression ? Low levels of testosterone that can result in lower sex drive, energy, and strength ? Itching and sweating RISKS ARE GREATER WITH: ? History of drug misuse, substance use disorder, or overdose ? Mental health conditions (such as depression or anxiety) ? Sleep apnea ? Older age (65 years and older) ? Avoid alcohol while taking prescription opioids. Also, unless specifically advised by your health care provider, medications to avoid include: ? Benzodiazepines (such as Xanax or Valium) ? Muscle relaxants (such as Soma or Flexeril) ? Hypnotics (such as Ambien or Lunesta) ? Other prescription opioids KNOW YOUR OPTIONS Talk to your health care provider about ways to manage your pain that don?t involve prescription opioids. Some of these options may actually work better and have fewer risks and side effects. Options may include: ? Pain relievers such as acetaminophen, ibuprofen, and naproxen ? Some medication that are also used for depression or seizures ? Physical therapy and exercise ? Cognitive behavioral therapy, a psychological, goal-directed approach, in which patients learn how to modify physical, behavioral, and emotional triggers of pain and stress. IF YOU ARE PRESCRIBED OPIOIDS FOR PAIN: ? Never take opioids in greater amounts or more often than prescribed. ? Follow up with your primary health care provider. o Work together to create a plan on how to manage your pain. o Talk about ways to help manage your pain that don?t involve prescription opioids. o Talk about any and all concerns and side effects. ? Help prevent misuse and abuse o Never sell or share prescription opioids. o Never use another person?s prescription opioids. ? Store prescription opioids in a secure place and out of reach of others (this may include visitors, children, friends, and family). ? Safely dispose of unused prescription opioids: Find your community drug take-back program or your pharmacy mail-back program, or flush them down the toilet, following guidance from the Food and Drug Administration (www.fda.gov/Drugs/Re sourcesForYou). ? Visit www.cdc.gov/drugoverd ose to learn about the risks of opioids abuse and overdose. ? If you believe you may be struggling with addiction, (more content not included)... Normal [facility] Family Medicine Office/Clini c Noteon 11-26-2022 Family Medicine Office/Clinic Note Chief Complaint EST sinus congestion, headache, ear pain, sore throat, cough HPI Staff Pt 17 yo female presents with sinus, ears Pt states she swallowed a bunch of salt water at [place] [employer]- Saturday Headache- yes Earache- yes Sinus Congestion- yes Rhinorrhea- yes Sore Throat- yes Cough- yes wheezing- no Dyspnea on exertion- no Lung Hx (asthma, recurring bronchitis/chest colds, COPD)- no Fevers/chills- no GI symptoms- no Treatment- tylenol History of Present Illness I have reviewed and verified the staff HPI to be accurate for this encounter. Patient presents in office for concern of headache, earache and pressure, nasal congestion, nasal drainage, sore throat, cough. Symptoms started 5 days ago. Denies fever or chills. Denies GI symptoms. Has been using Tylenol with mild improvement. Last dose of Tylenol 2 days ago. Was on vacation recently, [place] salt water in ocean. Denies known sick contacts. Review of Systems PHQ Score Initial Depression Screen Score: 0 Physical Exam Vitals & Measurements T: 36.9 ?C(Oral) HR: 99(Peripheral) BP: 118/78 SpO2: 98% HT: 64 in HT: 162 cm WT: 78 kg WT: 171.6 lb BMI: 29.72 General: Well developed, well nourished, in no acute distress Ears: No deformity or lesion of external ear. Canals and TM appear normal bilaterally. TM?s intact, not inflamed, with normal light reflex. Hearing grossly normal to conversational speech, mild clear effusions bilaterally Nose: moderate nasal mucosa inflammation and edema, mild clear rhinorrhea Mouth: Mild pharyngeal erythema, no tonsillar lodgment, no exudate, no petechiae, no palatal inflammation Neck: no adenopathy Lungs: clear to auscultation throughout, no wheezing, no rales. No respiratory distress Cardio: regular rate and rhythm, no murmur Mental Status: Alert and oriented x3. Normal mood and affect Assessment/Plan 1. Viral URI with cough (J06.9: Acute upper respiratory infection, unspecified) Discussed exam and hx are consistent with viral illness. Advised of typical duration. Discussed antibiotics unfortunately do not treat viral illnesses, it will take time to run course- usually 7-14 days. Fluids/rest encouraged, PRN tylenol/ibuprofen for any pain. May use claritin D, mucinex DM for symptomatic tx. Follow up with PCP if not improving over next 7 days or significantly worsening symptoms. Patient and/or parent verbalized understanding of tx plan. 2. BMI 29.0-29.9,adult (Z68.29: Body mass index [BMI] 29.0-29.9, adult) The standard range for ages 18 and older is >=18.5 and < 25 kg/m2. Your BMI today was above this range, this falls in the overweight to obese category and there are medical benefits to weight loss. We can offer counselling, referral, and/or medical support in addressing this problem. Your BMI and weight management will be followed at subsequent visits. Ordered: Body Mass Index (BMI) documented 3008F Orders: dextromethorphan-guai fenesin, 2 tab(s), Oral, q12hr for 14 day(s), 56 tab(s), Refill(s) 0, [id number], 162, cm, 11/26/22 17:18:00 EDT, Height/Length Dosing, 78, kg, 11/26/22 17:18:00 EDT, Weight Dosing loratadine-pseudoephe drine, 1 tab(s), Oral, q12hr for 7 day(s), 14 tab(s), Refill(s) 0, [id number], 162, cm, 11/26/22 17:18:00 EDT, Height/Length Dosing, 78, kg, 11/26/22 17:18:00 EDT, Weight Dosing Follow-up With When Contact Information KETAN MOJICA DO Additional Instructions: Patient Education Viral Respiratory Infection, Yrvg-Qj-Ytpq BMI for Adults Problem List/Past Medical History Ongoing Sprain of right knee Historical No qualifying data Procedure/Surgical History RIGHT KNEE ARTHROSCOPY ACL RECONSTRUCTION HAMSTRING AUTOGRAFT MENISCAL REPAIR PARTIAL MEDIAL MENISCECTOMY (07/25/2018), None. Medications citalopram 20 mg Tab Claritin-D 5 mg-120 mg Tab-ER, 1 tab(s), Oral, q12hr Mucinex DM 30 mg-600 mg Tab-ER, 2 tab(s), Oral, q12hr Allergies No Known Allergies Social History Alcohol - Denies Alcohol Use, 08/04/2013 Current, 08/12/2020 Alcohol use interferes with work or home: No., 06/18/2017 Other Substance Abuse - Denies Substance Abuse, 08/04/2013 Household substance abuse concerns: No., 08/12/2020 Tobacco - Denies Tobacco Use, 08/04/2013 Never (less than 100 in lifetime) Tobacco Use:. Never Smokeless Tobacco Use:. Household tobacco concerns: No., 11/26/2022 Household tobacco concerns: Yes., 09/28/2010 Family History Family history is negative Immunizations Vaccine Date Status Comments SARS-CoV-2 mRNA (tozinameran 5y-11y) vac - Not Given Postpone due to refusal influenza virus vaccine, inactivated 08/27/2022 Given influenza virus vaccine, inactivated 06/05/2019 Recorded human papillomavirus vaccine 08/20/2016 Recorded human papillomavirus vaccine 05/18/2016 Recorded tetanus toxoid 02/17/2016 Recorded meningococcal conjugate vaccine 02/17/2016 Recorded human papillomavirus vaccine 02/17/2016 Recorded hepatitis A ad (more content not included)... Normal [facility] Comment on above: Result Comment: Elec tronically Signed By: VINNY ZHONG, Laine Suggs\.br\Date and Time Signed: 11/26/22 17:48 EDT Patient Educationon 11-27-19 Patient Education Infectious Disease Viral Respiratory Infection A viral respiratory infection is an illness that affects parts of the body that are used for breathing. These include the lungs, nose, and throat. It is caused by a germ called a virus. Some examples of this kind of infection are: ? A cold. ? The flu (influenza). ? A respiratory syncytial virus (RSV) infection. What are the causes? This condition is caused by a virus. It spreads from person to person. You can get the virus if: ? You breathe in droplets from someone who is sick. ? You come in contact with people who are sick. ? You touch mucus or other fluid from a person who is sick. What are the signs or symptoms? Symptoms of this condition include: ? A stuffy or runny nose. ? A sore throat. ? A cough. ? Shortness of breath. ? Trouble breathing. ? Yellow or green fluid in the nose. Other symptoms may include: ? A fever. ? Sweating or chills. ? Tiredness (fatigue). ? Achy muscles. ? A headache. How is this treated? This condition may be treated with: ? Medicines that treat viruses. ? Medicines that make it easy to breathe. ? Medicines that are sprayed into the nose. ? Acetaminophen or NSAIDs, such as ibuprofen, to treat fever. Follow these instructions at home: Managing pain and congestion ? Take mzno-xxn-ebmqhlt and prescription medicines only as told by your doctor. ? If you have a sore throat, gargle with salt water. Do this 3?4 times a day or as needed. ? To make salt water, dissolve ??1 tsp (3?6 g) of salt in 1 cup (237 mL) of warm water. Make sure that all the salt dissolves. ? Use nose drops made from salt water. This helps with stuffiness (congestion). It also helps soften the skin around your nose. ? Take 2 tsp (10 mL) of honey at bedtime to lessen coughing at night. ? Do not give honey to children who are younger than 1 year old. ? Drink enough fluid to keep your pee (urine) pale yellow. General instructions ? Rest as much as possible. ? Do not drink alcohol. ? Do not smoke or use any products that contain nicotine or tobacco. If you need help quitting, ask your doctor. ? Keep all follow-up visits. How is this prevented? ? Get a flu shot every year. Ask your doctor when you should get your flu shot. ? Do not let other people get your germs. If you are sick: ? Wash your hands with soap and water often. Wash your hands after you cough or sneeze. Wash hands for at least 20 seconds. If you cannot use soap and water, use hand automatic typewriter inspector. ? Cover your mouth when you cough. Cover your nose and mouth when you sneeze. ? Do not share cups or eating utensils. ? Clean commonly used objects often. Clean commonly touched surfaces. ? Stay home from work or school. ? Avoid contact with people who are sick during cold and flu season. This is in fall and winter. Get help if: ? Your symptoms last for 10 days or longer. ? Your symptoms get worse over time. ? You have very bad pain in your face or forehead. ? Parts of your jaw or neck get very swollen. ? You have shortness of breath. Get help right away if: ? You feel pain or pressure in your chest. ? You have trouble breathing. ? You faint or feel like you will faint. ? You keep vomiting and it gets worse. ? You feel confused. These symptoms may be an emergency. Get help right away. Call your local emergency services (911 in the [place] ? Do not wait to see if the symptoms will go away. ? Do not drive yourself to the hospital. Summary ? A viral respiratory infection is an illness that affects parts of the body that are used for breathing. ? Examples of this illness include a cold, the flu, and a respiratory syncytial virus (RSV) infection. ? The infection can cause a runny nose, cough, sore throat, and fever. ? Follow what your doctor tells you about taking medicines, drinking lots of fluid, washing your hands, resting at home, and avoiding people who are sick. This information is not intended to replace advice given to you by your health care provider. Make sure you discuss any questions you have with your health care provider. Document Revised: 10/05/2021 Document Reviewed: 10/05/2021 [employer] Patient Education ? 2022 [employer]. Nutrition BMI for Adults What is BMI? Body mass index (BMI) is a number that is calculated from a person's weight and height. BMI can help estimate how much of a person's weight is composed of fat. BMI does not measure body fat directly. Rather, it is an alternative to procedures that directly measure body fat, which can be difficult and expensive. BMI can help identify people who may be at higher risk for certain medical problems. What are BMI measurements used for? BMI is used as a screening tool to identify possible weight problems. It helps determine whether a person is obese, overweight, a healthy weight, or under (more content not included)... Normal [facility] Quantiferon-TB Plus (Client Incubated)on 08-29-2022 Gamma interferon background IA Qn (Bld) 0.03 International_Unit/mL Invalid Interpretation Code [facility] Comment on above: Performed By: #### 1 [id number] ####[facility] [id number] [place] [address] M. tuberculosis stim IFN-g by CD4+ CD8+ T-cells Qn (Bld) 0.08 International_Unit/mL Invalid Interpretation Code [facility] Comment on above: Performed By: #### 1 [id number] ####[facility] [address] [place] [address] M. tuberculosis stim IFN-g by CD4+ T-cells Qn (Bld) 0.06 International_Unit/mL Invalid Interpretation Code [facility] Comment on above: Performed By: #### 1 [id number], [id number] ####[facility] [address] [place] [address] M. tuberculosis stim IFN-g Ql (Bld) [Interp] Negative Invalid Interpretation Code Negative [facility] Comment on above: Result Comment: No r esponse to M tuberculosis antigens detected. Infection with M tuberculosis is unlikely, but high risk individuals should be considered for additional testing (ATS/IDSA/CDC Clinical Practice Guidelines, 2017). The reference range is an Antigen minus Nil result of <0.35 IU/mL. The specimen received for QuantiFERON testing was incubated by the ordering institution. Specific procedures outlined in our Directory of Services and in the package insert for the QuantiFERON Gold (In Tube) test must be followed to enable for proper stimulation of cells for the production of interferon gamma.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 Facility:[facility] Start: 01-08-2022 End: 01-08-[address] RADHA GILL . Facility:[facility] Start: 01-08-2022 End: 01-09-[address] RADHA GILL . Facility:[facility] Start: 01-03-2022 End: 01-03-2022 ambulatory NONE LISTED REQUEST Facility:[facility] Start: 11-13-2021 End: 11-13-[address] RADHA GILL . Facility:[facility] Start: 10-30-2021 End: 10-31-[address] RADHA GILL . Facility:[facility] Start: 10-19-2021 ambulatory MD VAUGHN CORTEZ Facility:[id number] Start: 09-21-2021 End: 09-22-[address] RADHA GILL . Facility:[facility] Start: 06-28-2021 Office outpatient ne w 60 minutes Ketan Mojica Work Phone: LB-Yqxjpbbjxh-Aagmrtqv ook 220 Work Phone: Start: 06-16-2021 Office outpatient visit 25 minutes Ketan Mojica Work Phone: TI-Zhbsfuzdt-Fstrjulgw 201 Work Phone: Start: 05-03-2021 Chart Update Ketan Kwok y Work Phone: XA-Lbieqkfnd-Hideurjtu 201 Work Phone: Start: 04-27-2021 Office outpatient visit 15 minutes Ketan Mojica [facility] Start: 04-18-2021 Office outpatient ne w 60 minutes Ketan Mojica Work Phone: [facility] 201 Work Phone: Procedures Date Procedure Procedure Detail Performing Clinician Start: 01-31-2022 Delivery of Products of Conception, External Approach DR RADHA GILL . Start: 01-31-2022 Repair Perineum Musc le, Open Approach DR RADHA GILL . Start: 01-30-2022 Drainage of Amniotic Fluid, Therapeutic from Products of Conception, Via Natural or Artificial Opening DR RADHA GILL . Start: 01-29-2022 Introduction of Horm one into Female Reproductive, Via Natural or Artificial Opening DR RADHA GILL . Start: 07-25-2018 RIGHT KNEE ARTHROSCO PY ACL RECONSTRUCTION HAMSTRING AUTOGRAFT MENISCAL REPAIR PARTIAL MEDIAL MENISCECTOMY Laine CASILLAS None (qualifier value) Jazmyn stout VINNY Plan of Treatment Date Care Activity Detail Author Start: 10-20-2021 FUVGENERAL, Provider : Vaughn Cortez, Status: Pen, Time: 10:30 AM FUVGENERAL, Provider: Vaughn Cortez, Status: Pen, Time: 10:30 AM ML-Ecnotpaqs-Ukuogdx ld 201 Work Phone: Start: 07-20-2021 NPV, Provider: Christian Durbin, Status: Pen, Time: 11:00 AM NPV, Provider: Christian Durbin, Status: Pen, Time: 11:00 AM OW-Yaveynhwd-Dawvaub ld 201 Work Phone: Start: 06-28-2021 NPV, Provider: Christain Durbin, Status: Pen, Time: 4:20 PM NPV, Provider: Christian Durbin, Status: Pen, Time: 4:20 PM UR-Hzkctpetx-Kdhfwkd ld 201 Work Phone: Start: 06-16-2021 FUVGENERAL, Provider : Vaughn Cortez, Status: Pen, Time: 11:30 AM FUVGENERAL, Provider: Vaughn Cortez, Status: Pen, Time: 11:30 AM CH-Ysdrgkjdn-Twzxjbq ld 201 Work Phone: Start: 05-24-2021 EEG, Provider: NEURO DIAG EEG ELYRIA,[id number], Status: Pen, Time: 9:00 AM EEG, Provider: NEURODIAG EEG ELYRIA,[id number], Status: Pen, Time: 9:00 AM SB-Bhomgjspg-Zvinwvv ld 201 Work Phone: Immunizations Immunization Date Immunization Notes Care Provider Reuben garcia 08-27-2022 influenza virus vaccine, unspecified formulation Laine CASILLAS [facility] 03-31-2021 Ketorolac Tromethamin Ketan Mojica Other [facility] Other 06-05-2019 influenza virus vaccine, unspecified formulation Laine CASILLAS [facility] 08-20-2016 HPV, unspecified formulation Laine CASILLAS [facility] 05-18-2016 HPV, unspecified formulation Laine CASILLAS [facility] 02-17-2016 hepatitis A vaccine, adult dosage Laine CASILLAS [facility] 02-17-2016 HPV, unspecified formulation Laine CASILLAS [facility] 02-17-2016 meningococcal ACWY vaccine, unspecified formulation Laine CSAILLAS [facility] 02-17-2016 tetanus toxoid, unspecified formulation Laine CASILLAS [facility] 03-23-2009 varicella virus vaccine Ketan Mojica Other [facility] 03-23-2009 poliovirus vaccine, inactivated Ketan Mojica Other [facility] Other 03-23-2009 measles, mumps and rubella virus vaccine Ketan Mojica Other [facility] 03-23-2009 hepatitis A vaccine, pediatric/adolescent dosage, 2 dose schedule Ketan Mojica Other [facility] Other 03-23-2009 diphtheria, tetanus toxoids and acellular pertussis vaccine Ketan Mojica Other [facility] 03-23-2009 hepatitis A vaccine, adult dosage Lainejaydon CASILLAS [facility] 03-23-2009 poliovirus vaccine, unspecified formulation Laine CASILLAS [facility] 04-19-2006 influenza, seasonal, injectable, preservative free Ketan Mojica Other [facility] Other 04-19-2006 influenza virus vaccine, unspecified formulation Laine CASILLAS [facility] 02-06-2005 varicella virus vaccine Ketan Mojica Other [facility] 02-06-2005 pneumococcal polysaccharide vaccine, 23 valent Ketan Mojica Other [facility] Other 02-06-2005 measles, mumps and rubella virus vaccine Ketan Mojica Other [facility] 02-06-2005 haemophilus influenz ae type b vaccine, PRP-T conjugate Ketan Mojica Other [facility] Other 02-06-2005 diphtheria, tetanus toxoids and acellular pertussis vaccine Ketan Mojica Other [facility] 02-06-2005 haemophilus influenz ae type b vaccine, PRP-OMP conjugate Laine CASILLAS [facility] 02-06-2005 pneumococcal conjuga te vaccine, 13 valent Laine CASILLAS [facility] 05-08-2004 poliovirus vaccine, inactivated Ketan Mojica Other [facility] Other 05-08-2004 pneumococcal polysaccharide vaccine, 23 valent Ketan Mojica Other [facility] Other 05-08-2004 haemophilus influenz ae type b vaccine, PRP-T conjugate Ketan Mojica Other [facility] Other 05-08-2004 hepatitis B vaccine, pediatric or pediatric/adolescent dosage Ketan Mojica Other [facility] 05-08-2004 diphtheria, tetanus toxoids and acellular pertussis vaccine Ketan Mojica Other [facility] 05-08-2004 haemophilus influenz ae type b vaccine, PRP-OMP conjugate Laine CASILLAS [facility] 05-08-2004 pneumococcal conjuga te vaccine, 13 valent Laine CASILLAS [facility] 05-08-2004 poliovirus vaccine, unspecified formulation Laine CASILLAS [facility] 02-10-2004 poliovirus vaccine, inactivated Ketan Mojica Other [facility] Other 02-10-2004 pneumococcal polysaccharide vaccine, 23 valent Ketan Mojica Other [facility] Other 02-10-2004 haemophilus influenz ae type b vaccine, PRP-T conjugate Ketan Mojica Other [facility] Other 02-10-2004 diphtheria, tetanus toxoids and acellular pertussis vaccine Ketan Mojica Other [facility] 02-10-2004 haemophilus influenz ae type b vaccine, PRP-OMP conjugate Laine CASILLAS [facility] 02-10-2004 pneumococcal conjuga te vaccine, 13 valent Laine CASILLAS [facility] 02-10-2004 poliovirus vaccine, unspecified formulation Laine CASILLAS [facility] 2003 poliovirus vaccine, inactivated Ketan Mojica Other [facility] Other 2003 pneumococcal conjuga te vaccine, 7 valent Ketan Mojica Other [facility] Other 2003 haemophilus influenz ae type b vaccine, PRP-T conjugate Ketan Mojica Other [facility] Other 2003 hepatitis B vaccine, pediatric or pediatric/adolescent dosage Ketan Mojica Other [facility] 2003 diphtheria, tetanus toxoids and acellular pertussis vaccine Ketan Mojica Other [facility] 2003 haemophilus influenz ae type b vaccine, PRP-OMP conjugate Laine CASILLAS [facility] 2003 pneumococcal conjuga te vaccine, 13 valent Lainejaydon CASILLAS [facility] 2003 poliovirus vaccine, unspecified formulation Laine CASILLAS [facility] 2003 hepatitis B vaccine, pediatric or pediatric/adolescent dosage Ketan Mojica Other [facility] NEGATED: Highlighted row has not occurred!11-26-2022 SARS-CoV-2 mRNA (tozinameran 5y-11y) vaccine Laine CASILLAS [facility] Payers Date Payer Category Payer Unknown [id number] 2022 Unknown [id number] 2003 Unknown [id number] 2.16.84 [id number] 2003 Unknown [id number] 2.16.84 0.1.744579.3.579.2.593 2003 Unknown [id number] 2.16.84 0.1.435078.3.579.2.593 2003 Unknown [id number] 2.16.84 0.1.085307.3.579.2.593 2003 Unknown [id number] 2.16.84 0.1.110144.3.579.2.593 2003 Unknown [id number] 2.16.84 0.1.153929.3.579.2.593 2003 Unknown [id number] 2.16.84 0.1.713482.3.579.2.593 2003 Unknown [id number] 2.16.84 0.1.403080.3.579.2.593 2003 Unknown [id number] 2.16.84 0.1.467113.3.579.2.593 2003 Unknown [id number] 2.16.84 0.1.661868.3.579.2.593 2003 Unknown [id number] 2.16.8 40.1.506692.3.579.2.727 2003 Unknown [id number] 2.16.8 40.1.582827.3.579.2.727 2003 Unknown [id number] 2.16.8 40.1.040426.3.579.2.727 2003 Unknown [id number] 2.16. 840.1.109297.3.579.2.594 2003 Unknown [id number] 2.16.840 .1.471486.3.579.2.1259 2003 Unknown [id number] 2.16.840 .1.713419.3.579.2.1259 2003 Unknown [id number] 2.16.840 .1.627159.3.579.2.1259 2003 Unknown [id number] 2.16.840 .1.496887.3.579.2.1259 1981 Unknown [id number] 2.16. 840.1.281587.3.579.2.356 1981 Unknown [id number] 2.16. 840.1.785179.3.579.2.356 1981 Unknown [id number] 2.16.8 40.1.735164.3.579.2.727 1981 Unknown [id number] 2.16.8 40.1.937179.3.579.2.727 1959 Self-pay 1959 Unknown [id number] 2.1 [id number] Unknown [employer] Social History Date Type Detail Facility Non-smoker Non-smoker MH-Oxzypjfwz-Iz effield 201 Work Phone: Sex [facility]igned [facility] Start: 11-26-2022 Tobacco smoking status Never s moked tobacco (finding) [facility] Tobacco smoking status Never Fis[facility] Functional Status Date Assessment Result Facility 12-11-2022 Functional Status N/A [facility] 12-10-2022 Functional Status N/A [facility] 11-26-2022 Functional Status N/A [facility] Clinical Notes 07-25-2018 to 12-11-2022 Note Date & Type Note Facility 12-11-2022 Evaluation + Plan note Extrac maranda from: Title:ED Note Author:Alvaro Holt DO Date :12/11/22 Acute contact dermatitis (L2 5.9: Unspecified contact dermatitis, unspecified cause) Chest pain (R07.9: Chest pain, unspecified) Orders: Automated Diff Basic Metabolic Panel CBC w/ Auto Diff ECG 12 Lead Adult ED Cardiac Monitoring eGFR Extra SST Tube Oxygen Saturation Oxygen Therapy PT & PTT Saline Lock Insert Troponin 0 Hr. Troponin 3 Hr. Troponin 6 Hr. Troponin 9 Hr. XR Chest Single View [facility]05-30-2023 Hospital Discharge instructions Patient Education 12/11/2022 06:51:15 Contact Dermatitis Contact Dermatitis Dermatitis is redness, soreness, and swelling (inflammation) of the skin. Contact dermatitis is a reaction to certain substances that touch the skin. Many different substances can cause contact dermatitis. There are two types of contact dermatitis: Irritant contact dermatitis. This type is caused by something that irritates your skin, such as having dry hands from washing them too often with soap. This type does not require previous exposure tothe substance for a reaction to occur. This is the most common type. Allergic contact dermatitis. This type is caused by a substance that you are allergic to, such as poison bre. This type occurs when you have been exposed to the substance (allergen) and develop a sensitivity to it. Dermatitis may develop soon after your first exposure to the allergen, or it may notdevelop until the next time you are exposed and every time thereafter. What are the causes? Irritant contact dermatitis is most commonly caused by exposure to: Makeup. Soaps. Detergents. Bleaches. Acids. Metal salts, such as nickel. Allergic contact dermatitis is most commonly caused by exposure to: Poisonous plants. Chemicals. Jewelry. Latex. Medicines. Preservatives in products, such as clothing. What increases the risk? You are more likely to develop this condition if you have: A job that exposes you to irritants or allergens. Certain medical conditions, such as asthma or eczema. What are the signs or symptoms? Symptoms of this condition may occur on your body anywhere the irritant has touched you or is touched by you. Symptoms include: ?Dryness or flaking. ?Redness. ?Cracks. ?Itching. ?Pain or a burning feeling. ?Blisters. ?Drainage of small amounts of blood or clear fluid from skin cracks. With allergic contact dermatitis, there may also be swelling in areas such as the eyelids, mouth, or genitals. How is this diagnosed? This condition is diagnosed with a medical history and physical exam. A patch skin test may be performed to help determine the cause. If the condition is related to your job, you may need to see an occupational health manager. How is this treated? This condition is treated by checking for the cause of the reaction and protecting your skin from further contact. Treatment may also include: Steroid creams or ointments. Oral steroid medicines may be needed in more severe cases. Antibiotic medicines or antibacterial ointments, if a skin infection is present. Antihistamine lotion or an antihistamine taken by mouth to ease itching. A bandage (dressing). Follow these instructions at home: Skin care Moisturize your skin as needed. Apply cool compresses to the affected areas. Try applying baking soda paste to your skin. Stir water into baking soda until it reaches a paste-like consistency. Do not scratch your skin, and avoid friction to the affected area. Avoid the use of soaps, perfumes, and dyes. Medicines Take or apply znmf-gvp-bcsgflz and prescription medicines only as told by your health care provider. If you were prescribed an antibiotic medicine, take or apply the antibiotic as told by your health care provider. Do not stop using the antibiotic even if your condition improves. Bathing Try taking a bath with: ?Epsom salts. Follow the instructions on the packaging. You can get these at your local pharmacy [employer] store. ?Baking soda. Pour a small amount into the bath as directed by your health care provider. ?Colloidal oatmeal. Follow the instructions on the packaging. You can get this at your local pharmacy or grocery store. Bathe less frequently, such as every other day. Bathe in lukewarm water. Avoid using hot water. Bandage care If you were given a bandage (dressing), change it as told by your health care provider. Wash your hands with soap and water before and after you change your dressing. If soap and water are not available, use hand automatic typewriter inspector. General instructions Avoid the substance that caused your reaction. If you do not know what caused it, keep a journal totry to track what caused it. Write down: ?What you eat. ?What cosmetic products you use. ?What you drink. ?What you wear in the affected area. This includes jewelry. Check the affected areas every day for signs of infection. Check for: ?More redness, swelling, or pain. ?More fluid or blood. ?Warmth. ?Pus or a bad smell. Keep all follow-up visits as told by your health care provider. This is important. Contact a health care provider if: Your condition does not improve with treatment. Your condition gets worse. You have signs of infection such as swelling, tenderness, redness, soreness, or warmth in the affected area. You have a fever. You have new symptoms. Get help right away if: You have a severe headache, neck pain, or neck stiffness. You vomit. You feel very sleepy. You notice red streaks coming from the affected area. Your bone or joint underneath the affected area becomes painful after the skin has healed. The affected area turns darker. You have difficulty breathing. Summary Dermatitis is redness, soreness, and swelling (inflammation) of the skin. Contact dermatitis is a reaction to certain substances that touch the skin. Symptoms of this condition may occur on your body anywhere the irritant has touched you or is touched by you. This condition is treated by figuring out what caused the reaction and protecting your skin from further contact. Treatment may also include medicines and skin care. Avoid the substance that caused your reaction. If you do not know what caused it, keep a journal totry to track what caused it. Contact a health care provider if your condition gets worse or you have signs of infection such as swelling, tenderness, redness, soreness, or warmth in the affected area. This information is not intended to replace advice given to you by your health care provider. Make sure you discuss any questions you have with your health care provider. Document Revised: 04/16/2022 Document Reviewed: 04/16/2022 [employer] Patient Education 2022 [employer]. 12/11/2022 06:51:15 Nonspecific Chest Pain, Adult Nonspecific Chest Pain, Adult Chest pain is an uncomfortable, tight, or painful feeling in the chest. The pain can feel like a crushing, aching, or squeezing pressure. A person can feel a burning or tingling sensation. Chest paincan also be felt in your back, neck, jaw, shoulder, or arm. This pain can be worse when you move, sneeze, or take a deep breath. Chest pain can be caused by a condition that is life-threatening. This must be treated right away. It can also be caused by something that is not life- threatening. If you have chest pain, it can be hard to know the difference, so it is important to get help right away to make sure that you do not have a serious condition. Some life-threatening causes of chest pain include: Heart attack. A tear in the body's main blood vessel (aortic dissection). Inflammation around your heart (pericarditis). A problem in the lungs, such as a blood clot (pulmonary embolism) or a collapsed lung (pneumothorax). Some non life-threatening causes of chest pain include: Heartburn. Anxiety or stress. Damage to the bones, muscles, and cartilage that make up your chest wall. Pneumonia or bronchitis. Shingles infection (varicella-zoster virus). Your chest pain may come and go. It may also be constant. Your health care provider will do tests and other studies to find the cause of your pain. Treatment will depend on the cause of your chest pain. Follow these instructions at home: Medicines Take xfpp-vvj-bihxofd and prescription medicines only as told by your health care provider. If you were prescribed an antibiotic medicine, take it as told by your health care provider. Do notstop taking the antibiotic even if you start to feel better. Activity Avoid any activities that cause chest pain. Do not lift anything that is heavier than 10 lb (4.5 kg), or the limit that you are told, until your health care provider says that it is safe. Rest as directed by your health care provider. Return to your normal activities only as told by your health care provider. Ask your health care provider what activities are safe for you. Lifestyle Do not use any products that contain nicotine or tobacco, such as cigarettes, e- cigarettes, and chewing tobacco. If you need help quitting, ask your health care provider. Do not drink alcohol. Make healthy lifestyle changes as recommended. These may include: ?Getting regular exercise. Ask your health care provider to suggest some exercises that are safe for you. ?Eating a heart-healthy diet. This includes plenty of fresh fruits and vegetables, whole grains, low-fat (lean) protein, and low-fat dairy products. A dietitian can help you find healthy eating options. ?Maintaining a healthy weight. ?Managing any other health conditions you may have, such as high blood pressure (hypertension) or diabetes. ?Reducing stress, such as with yoga or relaxation techniques. General instructions Pay attention to any changes in your symptoms. It is up to you to get the results of any tests that were done. Ask your health care provider, or the department that is doing the tests, when your results will be ready. Keep all follow-up visits as told by your health care provider. This is important. You may be asked to go for further testing if your chest pain does not go away. Contact a health care provider if: Your chest pain does not go away. You feel depressed. You have a fever. You notice changes in your symptoms or develop new symptoms. Get help right away if: Your chest pain gets worse. You have a cough that gets worse, or you cough up blood. You have severe pain in your abdomen. You faint. You have sudden, unexplained chest discomfort. You have sudden, unexplained discomfort in your arms, back, neck, or jaw. You have shortness of breath at any time. You suddenly start to sweat, or your skin gets clammy. You feel nausea or you vomit. You suddenly feel lightheaded or dizzy. You have severe weakness, or unexplained weakness or fatigue. Your heart begins to beat quickly, or it feels like it is skipping beats. These symptoms may represent a serious problem that is an emergency. Do not wait to see if the symptoms will go away. Get medical help right away. Call your local emergency services (911 in the [place] Do not drive yourself to the hospital. Summary Chest pain can be caused by a condition that is serious and requires urgent treatment. It may also be caused by something that is not life-threatening. Your health care provider may do lab tests and other studies to find the cause of your pain. Follow your health care provider's instructions on taking medicines, making lifestyle changes, and getting emergency treatment if symptoms become worse. Keep all follow-up visits as told by your health care provider. This includes visits for any further testing if your chest pain does not go away. This information is not intended to replace advice given to you by your health care provider. Make sure you discuss any questions you have with your health care provider. Document Revised: 09/14/2021 Document Reviewed: 09/14/2021 [employer] Patient Education 2022 [employer]. Follow Up Care 12/11/2022 04:11:26 With:KETAN MOJICA Address: [address] [place], [place] [id number]- Business (1) When:Within 3 Day(s) [facility]05-29-2023 Hospital Discharge instructions Patient Education 12/10/2022 13:24:07 Contact Dermatitis Contact Dermatitis Dermatitis is redness, soreness, and swelling (inflammation) of the skin. Contact dermatitis is a reaction to certain substances that touch the skin. Many different substances can cause contact dermatitis. There are two types of contact dermatitis: Irritant contact dermatitis. This type is caused by something that irritates your skin, such as having dry hands from washing them too often with soap. This type does not require previous exposure tothe substance for a reaction to occur. This is the most common type. Allergic contact dermatitis. This type is caused by a substance that you are allergic to, such as poison bre. This type occurs when you have been exposed to the substance (allergen) and develop a sensitivity to it. Dermatitis may develop soon after your first exposure to the allergen, or it may notdevelop until the next time you are exposed and every time thereafter. What are the causes? Irritant contact dermatitis is most commonly caused by exposure to: Makeup. Soaps. Detergents. Bleaches. Acids. Metal salts, such as nickel. Allergic contact dermatitis is most commonly caused by exposure to: Poisonous plants. Chemicals. Jewelry. Latex. Medicines. Preservatives in products, such as clothing. What increases the risk? You are more likely to develop this condition if you have: A job that exposes you to irritants or allergens. Certain medical conditions, such as asthma or eczema. What are the signs or symptoms? Symptoms of this condition may occur on your body anywhere the irritant has touched you or is touched by you. Symptoms include: ?Dryness or flaking. ?Redness. ?Cracks. ?Itching. ?Pain or a burning feeling. ?Blisters. ?Drainage of small amounts of blood or clear fluid from skin cracks. With allergic contact dermatitis, there may also be swelling in areas such as the eyelids, mouth, or genitals. How is this diagnosed? This condition is diagnosed with a medical history and physical exam. A patch skin test may be performed to help determine the cause. If the condition is related to your job, you may need to see an occupational health manager. How is this treated? This condition is treated by checking for the cause of the reaction and protecting your skin from further contact. Treatment may also include: Steroid creams or ointments. Oral steroid medicines may be needed in more severe cases. Antibiotic medicines or antibacterial ointments, if a skin infection is present. Antihistamine lotion or an antihistamine taken by mouth to ease itching. A bandage (dressing). Follow these instructions at home: Skin care Moisturize your skin as needed. Apply cool compresses to the affected areas. Try applying baking soda paste to your skin. Stir water into baking soda until it reaches a paste-like consistency. Do not scratch your skin, and avoid friction to the affected area. Avoid the use of soaps, perfumes, and dyes. Medicines Take or apply jjdi-qjm-yyohqnj and prescription medicines only as told by your health care provider. If you were prescribed an antibiotic medicine, take or apply the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
[2023-07-19 05:58] LABS: Hematocrit 26.7 % (36.0-48.0); Mean Corpuscular HGB Conc 26.2 g/dL (29.9-35.2); Mean Corpuscular Hemoglobin 17.7 pg (26.7-34.0); Mean Corpuscular Volume 67.6 fL (81.0-99.0); Mean Platelet Volume 10.7 fL (9.5-13.5); Platelet Count 330 10^3/uL (150-450); Red Blood Count 3.95 10^6/uL (4.20-5.40); Red Cell Distribution Width 20.6 % (11.0-15.0); White Blood Count 11.9 10^3/uL (4.0-11.0)
[2023-07-19] MEDS: 0.9 % SODIUM CHLORIDE 1,000 ML 125 ML IV ×3 (05:59→18:02)
[2023-07-19 06:15] LABS: Amphetamine Screen Urine NEGATIVE (NEGATIVE); Barbiturates Screen Urine NEGATIVE (NEGATIVE); Benzodiazepines Screen Urine NEGATIVE (NEGATIVE); Buprenorphine Screen Urine NEGATIVE (NEGATIVE); Cannabinoid Screen Urine NEGATIVE (NEGATIVE); Cocaine Screen Urine NEGATIVE (NEGATIVE); Methadone Screen Urine NEGATIVE (NEGATIVE); Methamphetamines Screen Urine NEGATIVE (NEGATIVE); Opiate Screen Urine NEGATIVE (NEGATIVE); Oxycodone Screen Urine NEGATIVE (NEGATIVE); Phencyclidine Screen Urine NEGATIVE (NEGATIVE); Tricyclic Antidepressant Urine NEGATIVE (NEGATIVE)
[2023-07-19] MEDS: OXYTOCIN/0.9 % SODIUM CHLORIDE 10 UNITS/500 ML PLAST..BAG 6 UNIT IV (07:30)
[2023-07-19] MEDS: ROPIVACAINE HCL/PF 400 MG/200 ML PREMIX 9 MG EPIDURAL (17:00)
--- NOTE | 2023-07-19 18:47 | PM.OBPRCVD ---
Procedure Intrapartal events: None Induction method: per pitocin protocol Delivery augmentation: rupture of membranes and pitocin Delivery monitor: external FHT and external uterine Route of delivery: Episiotomy Description: none Laceration description: perineal - 1st degree Delivery repair: Vicryl Estimated blood loss (mL): 200 Anesthesia type: Epidural Disposition: floor Infant Delivery date: 07/19/23 Gender: female presentation: vertex Placental delivery description: Spontaneous cord description: 3 Vessels and Nuchal Cord (times 2)
[2023-07-19] MEDS: OXYTOCIN/0.9 % SODIUM CHLORIDE 20 UNITS/1,000 ML PLAST..BAG 125 UNIT IV (19:01)
[2023-07-19] MEDS: IBUPROFEN 600 MG TABLET PO (19:53)
[2023-07-19] MEDS: CITALOPRAM HYDROBROMIDE 20 MG TABLET 40 MG PO (21:23)
[2023-07-20] VITALS (21 sets, daily range): BP systolic 109–136; BP diastolic 56–74; PULSE 81–130; RESP 14–18; TEMP 36.2–37.4; O2SAT 95–100
[2023-07-20 06:22] LABS: Basophils Percent Auto 0.2 % (0.2-2.0); Eosinophils Absolute Auto 0.1 10^3/uL (0.0-0.7); Eosinophils Percent Auto 0.5 % (0.9-7.0); Hematocrit 26.5 % (36.0-48.0); Immature Granulocytes Abs Auto 0.14 10^3/uL (0.00-0.03); Immature Granulocytes Pct Auto 0.9 % (0.0-0.5); Lymphocytes Absolute Auto 2.3 10^3/uL (1.2-3.8); Mean Corpuscular HGB Conc 26.4 g/dL (29.9-35.2); Mean Corpuscular Hemoglobin 18.9 pg (26.7-34.0); Mean Corpuscular Volume 71.6 fL (81.0-99.0); Mean Platelet Volume 10.4 fL (9.5-13.5); Monocytes Absolute Auto 1.7 10^3/uL (0.3-0.8); Monocytes Percent Auto 10.6 % (1.7-12.0); Neutrophils Absolute Auto 12.1 10^3/uL (1.4-6.5); Neutrophils Percent Auto 73.8 % (43.0-75.0); Platelet Count 272 10^3/uL (150-450); Red Cell Distribution Width 22.3 % (11.0-15.0); White Blood Count 16.4 10^3/uL (4.0-11.0)
--- NOTE | 2023-07-20 07:48 | PC.NURSE ---
Report given to Jacinta Hinton RN.
[2023-07-20] MEDS: IBUPROFEN 600 MG TABLET PO (10:32)
[2023-07-20] MEDS: DOCUSATE SODIUM 100 MG CAPSULE PO (10:33)
--- NOTE | 2023-07-20 11:08 | PM.OBPN ---
OB - PN: Subj Subjective Patient comments: no complaints, tolerating diet and flatus present status: doing well and well feeding status: exclusively Exam Constitutional Vital Signs, click to edit/add: Last Vital Signs Temp 97.2 F L 07/20/23 10:31 Pulse 130 H 07/20/23 10:29 Resp 16 07/20/23 00:16 BP 136/74 07/20/23 10:29 O2 Del Method Room Air 07/20/23 00:16 Documenting provider has reviewed patient's vital signs: yes Common normals: no apparent distress, oriented x3 and alert HENMT Common normals: normocephalic and head/scalp atraumatic Eye Pupil: PERRL and accommodation reflex normal Neck & C-Spine Common normals: full ROM Respiratory Common normals: normal respiratory effort Cardio Common normals: regular rate and regular rhythm GI Common normals: Normal to inspection, nondistended, normoactive bowel sounds present and soft to palpation Common normals: no CVA tenderness Extremity Common normals: normal to inspection, full ROM and no calf tenderness Neuro Common normals: oriented x3, CN's II-XII intact bilaterally, moves all extremities, no focal motor deficits and no sensory deficits noted Psych Common normals: mental status grossly normal, thought process normal, cooperative and affect normal Results Labs Labs: Short CBC 07/20/23 Range/Units 06:10 WBC 16.4 H (4.0-11.0) 10^3/uL Hgb 7.0 L (12.0-16.0) g/dL Hct 26.5 L (36.0-48.0) % Plt Count 272 (150-450) 10^3/uL OB - PN: A/P Assessment and Plan (1) Anemia affecting in third trimester: Assessment and Plan: DR. RODRIGUEZ AWARE, GAVE ONE UNIT PRBC PRIOR TO DELIVERY ANEMIC PRIOR TO LABOR IF NEEDED INSTRUCTED TO GIVE SECOND UNIT PRBC PPD 1, THIS WILL BE DONE IRON SULFATE PO ORDERED (2) Tachycardia: Assessment and Plan: SECONDARY TO CHRONIC ANEMIA (3) Term : Assessment and Plan: DELIVERED BY UNCOMPLICATED VAGINAL ROUTE Plan CONTINUE IRON ORDERED AND ADMINISTER SECOND UNIT OF PRBC'S ORDERED BY DR. RODRIGUEZ Plan - Vaginal Delivery day: 1 Plan: routine care Time Spent with Patient Time: Total time spent is greater than 50% in coordination of care (as documented) at patient's floor/unit and/or counseling patient: Total time spent with greater than 50% in coordination of care (as documented) at patient's floor/unit and/or counseling patient: less than 15 minutes
[2023-07-20 17:39] LABS: Basophils Absolute Auto 0.1 10^3/uL (0.0-0.1); Basophils Percent Auto 0.4 % (0.2-2.0); Eosinophils Absolute Auto 0.1 10^3/uL (0.0-0.7); Eosinophils Percent Auto 0.5 % (0.9-7.0); Hematocrit 26.9 % (36.0-48.0); Hemoglobin 7.5 g/dL (12.0-16.0); Immature Granulocytes Abs Auto 0.18 10^3/uL (0.00-0.03); Immature Granulocytes Pct Auto 1.4 % (0.0-0.5); Lymphocytes Absolute Auto 2.2 10^3/uL (1.2-3.8); Lymphocytes Percent Auto 16.2 % (20.5-60.0); Mean Corpuscular HGB Conc 27.9 g/dL (29.9-35.2); Mean Corpuscular Hemoglobin 19.8 pg (26.7-34.0); Mean Corpuscular Volume 71.2 fL (81.0-99.0); Mean Platelet Volume 10.6 fL (9.5-13.5); Monocytes Absolute Auto 1.3 10^3/uL (0.3-0.8); Monocytes Percent Auto 9.4 % (1.7-12.0); Neutrophils Absolute Auto 9.6 10^3/uL (1.4-6.5); Neutrophils Percent Auto 72.1 % (43.0-75.0); Platelet Count 254 10^3/uL (150-450); Red Blood Count 3.78 10^6/uL (4.20-5.40); Red Cell Distribution Width 22.1 % (11.0-15.0); White Blood Count 13.3 10^3/uL (4.0-11.0)
[2023-07-20] MEDS: CITALOPRAM HYDROBROMIDE 20 MG TABLET 40 MG PO (20:50)
[2023-07-21 06:30] LABS: Basophils Absolute Auto 0.1 10^3/uL (0.0-0.1); Basophils Percent Auto 0.4 % (0.2-2.0); Eosinophils Absolute Auto 0.1 10^3/uL (0.0-0.7); Eosinophils Percent Auto 0.9 % (0.9-7.0); Hematocrit 30.1 % (36.0-48.0); Hemoglobin 8.6 g/dL (12.0-16.0); Immature Granulocytes Abs Auto 0.17 10^3/uL (0.00-0.03); Immature Granulocytes Pct Auto 1.3 % (0.0-0.5); Lymphocytes Absolute Auto 2.1 10^3/uL (1.2-3.8); Lymphocytes Percent Auto 15.6 % (20.5-60.0); Mean Corpuscular HGB Conc 28.6 g/dL (29.9-35.2); Mean Corpuscular Hemoglobin 20.7 pg (26.7-34.0); Mean Corpuscular Volume 72.4 fL (81.0-99.0); Mean Platelet Volume 10.5 fL (9.5-13.5); Monocytes Absolute Auto 1.5 10^3/uL (0.3-0.8); Monocytes Percent Auto 10.9 % (1.7-12.0); Neutrophils Absolute Auto 9.5 10^3/uL (1.4-6.5); Neutrophils Percent Auto 70.9 % (43.0-75.0); Platelet Count 261 10^3/uL (150-450); Red Blood Count 4.16 10^6/uL (4.20-5.40); Red Cell Distribution Width 22.5 % (11.0-15.0); White Blood Count 13.4 10^3/uL (4.0-11.0)
[2023-07-21 06:42] VITALS: TEMP 36.1
[2023-07-21 06:43] VITALS: BP 122/57; PULSE 78
[2023-07-21 09:21] VITALS: BP 121/60; PULSE 88; RESP 18; TEMP 37
[2023-07-21 09:24] VITALS: PULSE 86; RESP 18
--- NOTE | 2023-07-21 11:56 | PM.OBDS ---
DS: Providers Provider Date of admission: 07/19/23 04:53 Primary care physician: Non-Staff Physician, Admitting clinician: Ari Gill Consults: 07/19/23 Consult to Anesthesiology Routine Consulting Provider: Alexander Gonzales Reason for consultation: epidural Attending physician on discharge: Chiquis Davies Discharging clinician: Chiquis Davies DS: Diagnosis Discharge Diagnosis (1) Normal vaginal delivery: Assessment and plan: routine DC home going instructions after vaginal delivery (2) Anemia affecting in third trimester: Assessment and plan: received 3 units packed cells, hgb markedly improved, will continue iron sulfate 325 mg BID for one month (3) Tachycardia: Plan resolved OB - DS: Summary Hospital Course Hospital Course: uncomplicated Time spent discussing smoking cessation with patient: 3 to 10 minutes Peripartum Data - Vaginal Delivery Laceration description: periurethral - 1st degree Procedures: repair with vicryl Complications complications: none Delivery method: spontaneous vaginal delivery Gender: female Discharge plan: home Status at Discharge Cognitive/behavioral status at discharge: normal Functional status at discharge: independent ambulation Overall status at discharge: patient is back to baseline Time Spent with Patient Time attestation: Total time spent providing and/or coordinating discharge services: Time spent: less than 30 minutes Exam Constitutional Vital Signs, click to edit/add: Last Vital Signs Temp 98.6 F 07/21/23 09:21 Pulse 86 07/21/23 09:24 Resp 18 07/21/23 09:24 BP 121/60 07/21/23 09:21 Pulse Ox 96 07/20/23 20:15 O2 Del Method Room Air 07/21/23 09:24 Documenting provider has reviewed patient's vital signs: yes Common normals: no apparent distress, oriented x3, no limitations, healthy appearing, alert and well nourished General appearance: cooperative and comfortable HENMT Common normals: normocephalic and head/scalp atraumatic Eye Pupil: PERRL and accommodation reflex normal Neck & C-Spine Common normals: full ROM and supple Respiratory Common normals: normal respiratory effort Cardio Common normals: regular rate and regular rhythm GI Common normals: Normal to inspection, nondistended, normoactive bowel sounds present Common normals: no CVA tenderness Back & Pelvis Common normals: thoraco-lumbar ROM normal Extremity Common normals: normal to inspection, full ROM and no calf tenderness Neuro Common normals: CN's II-XII intact bilaterally, moves all extremities, no focal motor deficits and no sensory deficits noted Sensorium/orientation: awake, alert, oriented to person, oriented to place and oriented to time Psych Common normals: mental status grossly normal, thought process normal, cooperative, affect normal and speech normal DS: Data Data Completed and Pending Labs on day of discharge: Labs from last 24 hours 07/21/23 07/20/23 07/19/23 06:25 17:25 05:50 WBC 13.4 H 13.3 H RBC 4.16 L 3.78 L Hgb 8.6 L 7.5 L Hct 30.1 L 26.9 L MCV 72.4 L 71.2 L MCH 20.7 L 19.8 L MCHC 28.6 L 27.9 L RDW 22.5 H 22.1 H Plt Count 261 254 MPV 10.5 10.6 Neut % (Auto) 70.9 72.1 Lymph % (Auto) 15.6 L 16.2 L [place] % (Auto) 10.9 9.4 Eos % (Auto) 0.9 0.5 L Baso % (Auto) 0.4 0.4 Neut # (Auto) 9.5 H 9.6 H Lymph # (Auto) 2.1 2.2 [place] # (Auto) 1.5 H 1.3 H Eos # (Auto) 0.1 0.1 Baso # (Auto) 0.1 0.1 Abs Immat Gran (auto) 0.17 H 0.18 H Imm/Tot Granulo (auto) 1.3 H 1.4 H Blood Type O Positive Antibody Screen Negative Crossmatch See Detail Discharge Plan Discharge Disposition: Home, Self-Care Condition: Good Assessment: clinical exam non focal, no issues, no complaints, ready for discharge Health Concerns: hemoglobin markedly increased after three units packed cells, will continue PO iron for one month and eat iron rich diet Plan of Treatment: routine post instructions after uncomplicated vaginal delivery Discharge Medications: Continued citalopram 40 mg tablet 40 mg PO DAILY Activity: resume usual activities as tolerated Activity Detail: no sex six weeks, walking only exercise for six weeks, only lift baby, take iron twice daily as ordered and iron rich diet, schedule post exam in six weeks Diet: regular diet Patient Instructions: (DC), Anemia (DC), Vaginal Delivery (DC) Activity Restrictions/Additional Instructions: as above Forms: Portal Instructions Follow Up Appointments: six weeks with Dr. Gill Discharge location: home
== END 2023-07-21 13:30 | disposition home or self-care (01) | DRG 807 ==
PROVIDERS: Obstetrics & Gynecology; Admitting Provider Obstetrics & Gynecology; Visit Provider Obstetrics & Gynecology
DX: O99.02 Anemia complicating childbirth (principal); Z37.0 Single live birth; Z87.820 Personal history of traumatic brain injury; O99.892 Other specified diseases and conditions complicating childbirth; D64.89 Other specified anemias; O70.0 First degree perineal laceration during delivery; R00.0 Tachycardia, unspecified; Z3A.39 39 weeks gestation of pregnancy
CPT/HCPCS: 36415; 36430; 59050; 59410; 80307; 85025; 85027; 86850; 86900; 86901; 96365; 96366; 96376; J2795; P9016

== ENCOUNTER 2024-09-08 16:04 | Outpatient (OUT) | payer OTHER, SELFPAY ==
[2024-09-08 16:21] LABS: Basophils Absolute Auto 0.1 10^3/uL (0.0-0.1); Basophils Percent Auto 0.9 % (0.2-2.0); Eosinophils Absolute Auto 0.1 10^3/uL (0.0-0.7); Eosinophils Percent Auto 1.6 % (0.9-7.0); Hematocrit 38.4 % (36.0-48.0); Hemoglobin 12.4 g/dL (12.0-16.0); Immature Granulocytes Abs Auto 0.01 10^3/uL (0.00-0.03); Immature Granulocytes Pct Auto 0.1 % (0.0-0.5); Lymphocytes Absolute Auto 2.1 10^3/uL (1.2-3.8); Lymphocytes Percent Auto 29.7 % (20.5-60.0); Mean Corpuscular HGB Conc 32.3 g/dL (29.9-35.2); Mean Corpuscular Volume 89.7 fL (81.0-99.0); Mean Platelet Volume 9.4 fL (9.5-13.5); Monocytes Absolute Auto 0.8 10^3/uL (0.3-0.8); Monocytes Percent Auto 10.7 % (1.7-12.0); Platelet Count 270 10^3/uL (150-450); Red Blood Count 4.28 10^6/uL (4.20-5.40); Red Cell Distribution Width 14.2 % (11.0-15.0)
[2024-09-08 16:51] LABS: HCG Quantitative 971 mIU/mL
== END 2024-09-08 16:05 | disposition home or self-care (01) ==
PROVIDERS: PCP Obstetrics & Gynecology; Visit Provider Obstetrics & Gynecology
DX: N92.6 Irregular menstruation, unspecified (principal); Z86.2 Personal history of diseases of the blood and blood-forming organs and certain disorders involving the immune mechanism
CPT/HCPCS: 36415; 84702; 85025

== ENCOUNTER 2024-09-10 15:44 | Outpatient (OUT) | payer OTHER, SELFPAY ==
[2024-09-10 16:55] LABS: HCG Quantitative 2310 mIU/mL
== END 2024-09-10 15:45 | disposition home or self-care (01) ==
LOC: LAB 15:45
PROVIDERS: PCP Obstetrics & Gynecology; Visit Provider Obstetrics & Gynecology
DX: N92.6 Irregular menstruation, unspecified (principal)
CPT/HCPCS: 36415; 84702